=== PATIENT | female | born 1950 | race Caucasian/White ===

== ENCOUNTER 2017-07-27 23:56 | Emergency (ER) | payer MEDICARE ==
[~2017-07-27] VITALS: Ht 157.5 cm; Wt 80.0 kg
[~2017-07-27 23:56] MED LIST: ALBU18HF INH; ALPR0.254 PO; BENZ100C PO; DIGO250T PO; GUAI200T3 PO; IPRA3AMP NPPB; LEVO750T26 PO; LEVO750T6 PO; LOVA40TA2 PO; METH8TAB5 PO; METO-93 PO; MOME13HF INH; PRED10TA PO; TIOT18CA INH
[2017-07-28 00:27] LABS: BASOPHILS % (AUTO) 0 % (0-1); EOSINOPHILS % (AUTO) 0 % (1-7); LYMPHOCYTES # (AUTO) 0.81 x10^3/uL (1-3.4); LYMPHOCYTES % (AUTO) 7 % (22-44); MD NO; MEAN CORPUSCULAR HEMOGLOBIN 29.5 pg (27.0-34.8); MEAN CORPUSCULAR VOLUME 89.6 fL (80-100); MONOCYTES # (AUTO) 0.39 x10^3/uL (0.2-0.8); MONOCYTES % (AUTO) 4 % (2-9); NEUTROPHILS # (AUTO) 9.71 x10^3/uL (1.8-6.8); NEUTROPHILS % (AUTO) 89 % (42-75); PLATELET COUNT 233 x10^3/uL (130-400); RED BLOOD COUNT 4.99 x10^6/uL (3.82-5.3); RED CELL DISTRIBUTION WIDTH 13.4 % (9.6-15.2)
[2017-07-28] MEDS ORDERED: SODIUM CHLORIDE FLUSH 10ML SYR IVF ONE (00:30)
[2017-07-28] MEDS ORDERED: ONDANSETRON 2MG/ML, 2ML IVPush ONE (00:30)
[2017-07-28] MEDS ORDERED: HYDROmorphone 1 MG/ML, 1ML IV ONE (00:30)
[2017-07-28] MEDS ORDERED: HYDROmorphone 2 MG/ML, 1ML ONE (00:31)
[2017-07-28] MEDS ORDERED: ONDANSETRON 2MG/ML, 2ML ONE (00:31)
[2017-07-28 00:37] LABS: INTERNATIONAL NORMALIZED RATIO 1.06 (0.93-1.1); PROTHROMBIN TIME 10.9 Seconds (9.6-11.5)
[2017-07-28 00:38] LABS: CHLORIDE 100 mmol/L (98-107)
[2017-07-28 00:39] LABS: ALBUMIN 3.5 g/dL (3.4-5.0); ANION GAP 8 mmol/L (5-15); CALCIUM 9.1 mg/dL (8.5-10.1); CREATININE 0.74 mg/dL (0.55-1.02)
[2017-07-28 03:29] VITALS: BP 160/63
== END 2017-07-28 03:31 | disposition home or self-care (01) ==
LOC: ED 07-28 00:16
DX: G44.83 Primary cough headache (principal); J44.9 Chronic obstructive pulmonary disease, unspecified; Z87.01 Personal history of pneumonia (recurrent)
CPT/HCPCS: 36415; 70450; 80048; 82040; 85025; 85610; 85730; 96374; 96375; 99285; J1170; J2405

== ENCOUNTER 2017-07-29 02:02 | Emergency (ER) | payer MEDICARE ==
[~2017-07-29] VITALS: Ht 157.5 cm; Wt 74.1 kg
[2017-07-29] MEDS ORDERED: LIDOCAINE 1%, 20ML ONE (03:19)
[2017-07-29 03:44] LABS: MICROSCOPIC NOT IND
[2017-07-29 03:47] LABS: CULTURE INDICATED? NO
[2017-07-29 05:54] LABS: GLUCOSE, CSF 55 mg/dL (40-80); TOTAL PROTEIN,CSF 68 mg/dL (15-45)
[2017-07-29 07:19] VITALS: BP 129/72
== END 2017-07-29 07:54 | disposition home or self-care (01) ==
LOC: ED 03:05
DX: G44.019 Episodic cluster headache, not intractable (principal)
CPT/HCPCS: 62270; 81003; 82945; 84157; 87070; 87205; 89051; 99284; 99285

== ENCOUNTER 2017-08-02 12:42 | Inpatient (IN) | payer MEDICARE ==
[~2017-08-02] VITALS: Ht 157.5 cm; Wt 76.4 kg
[2017-08-02] MEDS ORDERED: ALBUTEROL/IPRATROPIUM 2.5MG/0.5MG, 3 ML ONE (13:54)
[2017-08-02] MEDS ORDERED: ALBUTEROL/IPRATROPIUM 2.5MG/0.5MG, 3 ML NPPB ONE (14:00)
[2017-08-02] MEDS ORDERED: SODIUM CHLORIDE FLUSH 10ML SYR IVF ONE (14:00)
[2017-08-02] MEDS ORDERED: SODIUM CHLORIDE 0.9% 1,000ML IVBOLUS ONE (14:00)
[2017-08-02 14:11] LABS: MEAN CORPUSCULAR HEMOGLOBIN 29.9 pg (27.0-34.8); MEAN CORPUSCULAR HGB CONC 33.5 g/dL (32.4-35.8); MEAN CORPUSCULAR VOLUME 89.2 fL (80-100); MEAN PLATELET VOLUME 8.2 fL (7.4-10.4); PLATELET COUNT 261 x10^3/uL (130-400); RED CELL DISTRIBUTION WIDTH 14.1 % (9.6-15.2)
[2017-08-02 14:16] LABS: ALBUMIN 3.8 g/dL (3.4-5.0); ANION GAP 9 mmol/L (5-15); CALCIUM 8.5 mg/dL (8.5-10.1); CHLORIDE 105 mmol/L (98-107); CREATININE 0.72 mg/dL (0.55-1.02)
[2017-08-02 14:36] LABS: BASOPHILS # (AUTO) 0.06 x10^3/uL (0-0.1); BASOPHILS % (AUTO) 0 % (0-1); EOSINOPHILS # (AUTO) 0.17 x10^3/uL (0-0.4); EOSINOPHILS % (AUTO) 1 % (1-7); LYMPHOCYTES # (AUTO) 1.09 x10^3/uL (1-3.4); LYMPHOCYTES % (AUTO) 6 % (22-44); MD SCAN; MONOCYTES # (AUTO) 1.21 x10^3/uL (0.2-0.8); MONOCYTES % (AUTO) 6 % (2-9); NEUTROPHILS # (AUTO) 16.87 x10^3/uL (1.8-6.8); NEUTROPHILS % (AUTO) 87 % (42-75)
[2017-08-02] MEDS ORDERED: PIPERACILLIN/TAZO/PMX 3.375GM 50 ML IV ONE (15:00)
[2017-08-02] MEDS ORDERED: SODIUM CHLORIDE FLUSH 10ML SYR IVF PRN (15:30)
[2017-08-02] MEDS ORDERED: PIPERACILLIN/TAZO/PMX 3.375GM 50 ML ONE (15:58)
[2017-08-02 17:17] VITALS: BP 121/55
[2017-08-02 17:26] VITALS: BP 121/55
[2017-08-02] MEDS ORDERED: hydrALAzine 20 MG/ML, 1ML IVPush PRN (17:30)
[2017-08-02] MEDS ORDERED: morphine SULFATE 10 MG/ML, 1ML IVPush PRN (17:30)
[2017-08-02] MEDS ORDERED: ONDANSETRON 2MG/ML, 2ML IVPush PRN (17:30)
[2017-08-02] MEDS ORDERED: VANCOMYCIN PER PHARMACY MC PRN (17:30)
[2017-08-02] MEDS ORDERED: ACETAMINOPHEN 325 MG TABLET PO PRN (17:30)
[2017-08-02] MEDS ORDERED: TEMAZEPAM 15 MG CAPSULE PO PRN (17:30)
[2017-08-02] MEDS ORDERED: VANCOMYCIN PMX 1GM/200ML 200 ML IV ONE (17:30)
[2017-08-02] MEDS ORDERED: PHARMACOKINETIC MONITORING MC PRN (18:00)
[2017-08-02] MEDS ORDERED: METOPROLOL TARTRATE 50 MG TABLET PO ONE (18:30)
[2017-08-02] MEDS ORDERED: DIGOXIN 0.25 MG TABLET PO ONE (18:30)
[2017-08-02] MEDS: ENOXAPARIN 40 MG/0.4 ML SQ SCH (18:38)
[2017-08-02] MEDS ORDERED: METOPROLOL SUCCINATE 50 MG TAB.ER.24H PO ONE (19:00)
[2017-08-02] MEDS ORDERED: ALBUTEROL/IPRATROPIUM 2.5MG/0.5MG, 3 ML NPPB SCH (20:00)
[2017-08-02] MEDS: LOVASTATIN 40 MG TABLET PO SCH (21:00)
[2017-08-02] MEDS: VALPROATE SODIUM 250 MG in DEXTROSE 5% 100 ML IV SCH (21:01)
[2017-08-02] MEDS: VANCOMYCIN 1,400 MG in SODIUM CHLORIDE 0.9% 250 ML IV SCH (21:45)
[2017-08-02] MEDS: PIPERACILLIN/TAZO/PMX 3.375GM 50 ML IV SCH (23:30)
[2017-08-03] MEDS: VALPROATE SODIUM 250 MG in DEXTROSE 5% 100 ML IV SCH ×4 (00:14→20:32)
[2017-08-03 00:56] VITALS: BP 134/62
[2017-08-03] MEDS ORDERED: ALBUTEROL/IPRATROPIUM 2.5MG/0.5MG, 3 ML ONE (01:01)
[2017-08-03] MEDS ORDERED: ALBUTEROL/IPRATROPIUM 2.5MG/0.5MG, 3 ML NPPB PRN (01:30)
[2017-08-03] MEDS: HYDROcodone/APAP 5/325 TABLET PO PRN ×3 (04:21→20:31)
[2017-08-03 04:57] LABS: BASOPHILS # (AUTO) 0.04 x10^3/uL (0-0.1); BASOPHILS % (AUTO) 0 % (0-1); EOSINOPHILS % (AUTO) 0 % (1-7); LYMPHOCYTES # (AUTO) 0.68 x10^3/uL (1-3.4); LYMPHOCYTES % (AUTO) 4 % (22-44); MD NO; MEAN CORPUSCULAR HEMOGLOBIN 29.9 pg (27.0-34.8); MEAN CORPUSCULAR HGB CONC 33.1 g/dL (32.4-35.8); MEAN CORPUSCULAR VOLUME 90.3 fL (80-100); MEAN PLATELET VOLUME 8.3 fL (7.4-10.4); MONOCYTES # (AUTO) 0.52 x10^3/uL (0.2-0.8); MONOCYTES % (AUTO) 3 % (2-9); NEUTROPHILS # (AUTO) 14.26 x10^3/uL (1.8-6.8); NEUTROPHILS % (AUTO) 92 % (42-75); PLATELET COUNT 221 x10^3/uL (130-400); RED BLOOD COUNT 4.61 x10^6/uL (3.82-5.3); RED CELL DISTRIBUTION WIDTH 13.9 % (9.6-15.2)
[2017-08-03 05:09] LABS: ALBUMIN 3.2 g/dL (3.4-5.0); ANION GAP 7 mmol/L (5-15); CALCIUM 8.3 mg/dL (8.5-10.1); CHLORIDE 106 mmol/L (98-107)
[2017-08-03 05:13] LABS: ALANINE AMINOTRANSFERASE 25 U/L (12-78); ALKALINE PHOSPHATASE 47 U/L (45-117); BILIRUBIN,TOTAL 0.4 mg/dL (0.2-1.0); CREATININE 0.75 mg/dL (0.55-1.02); TOTAL PROTEIN 6.4 g/dL (6.4-8.2)
[2017-08-03] MEDS: PIPERACILLIN/TAZO/PMX 3.375GM 50 ML IV SCH ×3 (05:55→17:40)
[2017-08-03] MEDS: ALBUTEROL/IPRATROPIUM 2.5MG/0.5MG, 3 ML NPPB SCH ×4 (07:00→19:24)
[2017-08-03 07:07] VITALS: BP 118/55
[2017-08-03] MEDS: METOPROLOL SUCCINATE 50 MG TAB.ER.24H PO SCH (08:03)
[2017-08-03] MEDS: DIGOXIN 0.25 MG TABLET PO SCH (08:03)
[2017-08-03 14:12] VITALS: BP 110/61
[2017-08-03] MEDS ORDERED: POLYETHYLENE GLYCOL 17 GM PACKET PO PRN (16:30)
[2017-08-03] MEDS: ENOXAPARIN 40 MG/0.4 ML SQ SCH (17:39)
[2017-08-03 18:56] VITALS: BP 109/52
[2017-08-03] MEDS ORDERED: DIPHENHYDRAMINE 50 MG/ML, 1ML IVPush ONE (22:00)
[2017-08-03] MEDS ORDERED: METOCLOPRAMIDE 5 MG/ML, 2ML IVPush ONE (22:00)
[2017-08-03] MEDS: LOVASTATIN 40 MG TABLET PO SCH (22:02)
[2017-08-03] MEDS: VANCOMYCIN 1,400 MG in SODIUM CHLORIDE 0.9% 250 ML IV SCH (22:03)
[2017-08-04] MEDS: PIPERACILLIN/TAZO/PMX 3.375GM 50 ML IV SCH ×5 (00:01→23:30)
[2017-08-04 00:48] VITALS: BP 146/65
[2017-08-04] MEDS: VALPROATE SODIUM 250 MG in DEXTROSE 5% 100 ML IV SCH ×3 (02:33→14:19)
[2017-08-04 05:03] VITALS: BP 129/59
[2017-08-04 05:09] LABS: BASOPHILS # (AUTO) 0.04 x10^3/uL (0-0.1); BASOPHILS % (AUTO) 0 % (0-1); EOSINOPHILS # (AUTO) 0.02 x10^3/uL (0-0.4); EOSINOPHILS % (AUTO) 0 % (1-7); LYMPHOCYTES # (AUTO) 2.65 x10^3/uL (1-3.4); LYMPHOCYTES % (AUTO) 19 % (22-44); MD NO; MEAN CORPUSCULAR HEMOGLOBIN 29.9 pg (27.0-34.8); MEAN CORPUSCULAR HGB CONC 32.7 g/dL (32.4-35.8); MEAN CORPUSCULAR VOLUME 91.2 fL (80-100); MONOCYTES # (AUTO) 0.86 x10^3/uL (0.2-0.8); MONOCYTES % (AUTO) 6 % (2-9); NEUTROPHILS # (AUTO) 10.15 x10^3/uL (1.8-6.8); NEUTROPHILS % (AUTO) 74 % (42-75); PLATELET COUNT 222 x10^3/uL (130-400); RED BLOOD COUNT 4.34 x10^6/uL (3.82-5.3); RED CELL DISTRIBUTION WIDTH 13.4 % (9.6-15.2)
[2017-08-04 05:19] LABS: ALBUMIN 2.9 g/dL (3.4-5.0); ANION GAP 7 mmol/L (5-15); CHLORIDE 103 mmol/L (98-107)
[2017-08-04 05:24] LABS: ALANINE AMINOTRANSFERASE 19 U/L (12-78); ALKALINE PHOSPHATASE 48 U/L (45-117); BILIRUBIN,TOTAL 0.3 mg/dL (0.2-1.0); CREATININE 0.75 mg/dL (0.55-1.02); TOTAL PROTEIN 5.9 g/dL (6.4-8.2)
[2017-08-04] MEDS: HYDROcodone/APAP 5/325 TABLET PO PRN ×3 (05:59→19:48)
[2017-08-04 06:45] VITALS: BP 114/53
[2017-08-04] MEDS: ALBUTEROL/IPRATROPIUM 2.5MG/0.5MG, 3 ML NPPB SCH ×4 (07:15→19:25)
[2017-08-04] MEDS: METOPROLOL SUCCINATE 50 MG TAB.ER.24H PO SCH (08:14)
[2017-08-04] MEDS: SENNA/DOCUSATE TABLET PO SCH (08:15)
[2017-08-04] MEDS: DIGOXIN 0.25 MG TABLET PO SCH (08:15)
[2017-08-04] MEDS ORDERED: GUAIFENESIN ER 600 MG TABLET ONE (10:21)
[2017-08-04] MEDS: GUAIFENESIN 200 MG TABLET PO SCH ×3 (10:24→19:48)
[2017-08-04 12:45] VITALS: BP 117/63
[2017-08-04] MEDS: ENOXAPARIN 40 MG/0.4 ML SQ SCH (17:05)
[2017-08-04] MEDS ORDERED: PROCHLORPERAZINE 5 MG/ML, 2ML IVPush ONE (19:00)
[2017-08-04] MEDS ORDERED: DIPHENHYDRAMINE 50 MG/ML, 1ML IVPush PRN (19:00)
[2017-08-04] MEDS ORDERED: KETOROLAC 30 MG/1 ML IVPush PRN (19:00)
[2017-08-04 19:10] VITALS: BP 117/55
[2017-08-04] MEDS: LOVASTATIN 40 MG TABLET PO SCH (19:48)
[2017-08-04] MEDS: VANCOMYCIN 1,400 MG in SODIUM CHLORIDE 0.9% 250 ML IV SCH (21:49)
[2017-08-05 01:35] VITALS: BP 120/61
[2017-08-05 04:59] LABS: ALBUMIN 2.8 g/dL (3.4-5.0); ANION GAP 5 mmol/L (5-15); CALCIUM 7.9 mg/dL (8.5-10.1); CHLORIDE 104 mmol/L (98-107)
[2017-08-05 05:00] LABS: CREATININE 0.69 mg/dL (0.55-1.02)
[2017-08-05] MEDS: PIPERACILLIN/TAZO/PMX 3.375GM 50 ML IV SCH ×4 (05:49→23:33)
[2017-08-05] MEDS: ALBUTEROL/IPRATROPIUM 2.5MG/0.5MG, 3 ML NPPB SCH ×4 (06:58→18:26)
[2017-08-05 08:24] VITALS: BP 137/54
[2017-08-05] MEDS: METOPROLOL SUCCINATE 50 MG TAB.ER.24H PO SCH (09:23)
[2017-08-05] MEDS: VANCOMYCIN 1,400 MG in SODIUM CHLORIDE 0.9% 250 ML IV SCH (09:23)
[2017-08-05] MEDS: DIGOXIN 0.25 MG TABLET PO SCH (09:24)
[2017-08-05] MEDS: SENNA/DOCUSATE TABLET PO SCH (09:24)
[2017-08-05] MEDS: GUAIFENESIN 200 MG TABLET PO SCH ×3 (09:24→21:57)
[2017-08-05] MEDS: HYDROcodone/APAP 5/325 TABLET PO PRN ×4 (09:53→22:05)
[2017-08-05 14:14] VITALS: BP 120/51
[2017-08-05] MEDS: ENOXAPARIN 40 MG/0.4 ML SQ SCH (18:04)
[2017-08-05] MEDS ORDERED: PROCHLORPERAZINE 5 MG/ML, 2ML IVPush PRN (18:30)
[2017-08-05 18:47] VITALS: BP 119/47
[2017-08-05] MEDS: LOVASTATIN 40 MG TABLET PO SCH (21:57)
[2017-08-06] MEDS ORDERED: OMNIPAQUE 350 MG/ML, 75ML BOTTLE ONE
[2017-08-06 00:59] VITALS: BP 124/63
[2017-08-06] MEDS: VANCOMYCIN 1,400 MG in SODIUM CHLORIDE 0.9% 250 ML IV SCH ×2 (03:16→20:34)
[2017-08-06] MEDS: HYDROcodone/APAP 5/325 TABLET PO PRN (04:28)
[2017-08-06] MEDS: PIPERACILLIN/TAZO/PMX 3.375GM 50 ML IV SCH ×3 (06:09→17:31)
[2017-08-06] MEDS: ALBUTEROL/IPRATROPIUM 2.5MG/0.5MG, 3 ML NPPB SCH ×4 (06:25→19:43)
[2017-08-06 06:40] VITALS: BP 101/66
[2017-08-06] MEDS: GUAIFENESIN 200 MG TABLET PO SCH ×3 (08:37→20:34)
[2017-08-06] MEDS: SENNA/DOCUSATE TABLET PO SCH (08:38)
[2017-08-06] MEDS: DIGOXIN 0.25 MG TABLET PO SCH (08:38)
[2017-08-06] MEDS: METOPROLOL SUCCINATE 50 MG TAB.ER.24H PO SCH (08:38)
[2017-08-06] MEDS: PANTOPROZOLE 40MG TABLET PO SCH ×2 (09:55→20:34)
[2017-08-06 10:55] LABS: RAPID INFLUENZA A Negative (Negative); RAPID INFLUENZA B Negative (Negative)
[2017-08-06] MEDS: SUCRALFATE 1 GM TABLET PO SCH ×3 (11:05→20:34)
[2017-08-06 12:58] VITALS: BP 121/64
[2017-08-06] MEDS: ENOXAPARIN 40 MG/0.4 ML SQ SCH (18:07)
[2017-08-06 19:31] VITALS: BP 114/68
[2017-08-06] MEDS: LOVASTATIN 40 MG TABLET PO SCH (20:34)
[2017-08-07] MEDS: PIPERACILLIN/TAZO/PMX 3.375GM 50 ML IV SCH ×2 (00:19→05:17)
[2017-08-07 01:13] VITALS: BP 144/74
[2017-08-07] MEDS: ALBUTEROL/IPRATROPIUM 2.5MG/0.5MG, 3 ML NPPB SCH ×4 (07:25→20:48)
[2017-08-07 07:53] VITALS: BP 133/78
[2017-08-07] MEDS: PANTOPROZOLE 40MG TABLET PO SCH ×2 (08:55→20:25)
[2017-08-07] MEDS: SUCRALFATE 1 GM TABLET PO SCH ×4 (08:56→20:26)
[2017-08-07] MEDS: DIGOXIN 0.25 MG TABLET PO SCH (08:56)
[2017-08-07] MEDS: METOPROLOL SUCCINATE 50 MG TAB.ER.24H PO SCH (08:56)
[2017-08-07] MEDS: GUAIFENESIN 200 MG TABLET PO SCH ×3 (08:56→20:26)
[2017-08-07] MEDS: SENNA/DOCUSATE TABLET PO SCH (08:57)
[2017-08-07 12:04] VITALS: BP 128/78
[2017-08-07] MEDS: HYDROcodone/APAP 5/325 TABLET PO PRN ×2 (16:37→20:26)
[2017-08-07] MEDS: ENOXAPARIN 40 MG/0.4 ML SQ SCH (18:11)
[2017-08-07 18:47] VITALS: BP 116/70
[2017-08-07] MEDS: LOVASTATIN 40 MG TABLET PO SCH (20:26)
[2017-08-07] MEDS: AMOXICILLIN/CLAV 875-125MG TABLET PO SCH (20:27)
[2017-08-08 01:26] VITALS: BP 137/79
[2017-08-08 06:37] VITALS: BP 148/75
[2017-08-08] MEDS: ALBUTEROL/IPRATROPIUM 2.5MG/0.5MG, 3 ML NPPB SCH ×2 (07:39→11:37)
[2017-08-08] MEDS: GUAIFENESIN 200 MG TABLET PO SCH (08:21)
[2017-08-08] MEDS: PANTOPROZOLE 40MG TABLET PO SCH (08:21)
[2017-08-08] MEDS: METOPROLOL SUCCINATE 50 MG TAB.ER.24H PO SCH (08:22)
[2017-08-08] MEDS: DIGOXIN 0.25 MG TABLET PO SCH (08:22)
[2017-08-08] MEDS: AMOXICILLIN/CLAV 875-125MG TABLET PO SCH (08:22)
[2017-08-08] MEDS: SUCRALFATE 1 GM TABLET PO SCH ×2 (08:22→11:09)
[2017-08-08] MEDS: SENNA/DOCUSATE TABLET PO SCH (08:23)
[2017-08-08] MEDS ORDERED: SUCR1TAB33 PO (11:20)
[2017-08-08] MEDS ORDERED: PROC10TA78 PO (11:20)
[2017-08-08] MEDS ORDERED: KETO10TA PO (11:20)
[2017-08-08] MEDS ORDERED: GUAI200T3 PO (11:20)
[2017-08-08] MEDS ORDERED: DIPH25CA61 PO (11:20)
[2017-08-08] MEDS ORDERED: PANT40TA5 PO (11:20)
[2017-08-08] MEDS ORDERED: PRED10TA14 PO (11:20)
[2017-08-08] MEDS ORDERED: AMOX1TAB12 PO (11:20)
== END 2017-08-08 12:35 | disposition home or self-care (01) | DRG 177 ==
LOC: ED 13:35 → EDIP 15:03 → 4WST 16:35
PROVIDERS: ADMIT Internal Medicine; ATTEND Internal Medicine
DX: J69.0 Pneumonitis due to inhalation of food and vomit (principal); E43 Unspecified severe protein-calorie malnutrition; J96.21 Acute and chronic respiratory failure with hypoxia; E66.9 Obesity, unspecified; E78.5 Hyperlipidemia, unspecified; F41.9 Anxiety disorder, unspecified; G47.33 Obstructive sleep apnea (adult) (pediatric); K21.9 Gastro-esophageal reflux disease without esophagitis; G44.009 Cluster headache syndrome, unspecified, not intractable; Z98.82 Breast implant status; Z68.30 Body mass index [BMI] 30.0-30.9, adult
CPT/HCPCS: 36415; 71045; 71260; 80048; 80053; 80202; 82040; 83735; 84100; 85025; 87040; 87205; 87400; 93005; 94640; 96360; J1650; J1885; J2405; J2543; J3370; J7620; Q9967; J0780; J1200; J2765; J7030; J7050; J7512

== ENCOUNTER 2017-09-16 15:53 | Inpatient (IN) | payer MEDICARE ==
[~2017-09-16] VITALS: Ht 157.5 cm; Wt 71.0 kg
[~2017-09-16 15:53] MED LIST changes: +AMOX1TAB12 PO; +DIPH25CA61 PO; +KETO10TA PO; +PANT40TA5 PO; +PRED10TA14 PO; +PROC10TA78 PO; +SUCR1TAB33 PO
[2017-09-16] MEDS ORDERED: ALBUTEROL/IPRATROPIUM 2.5MG/0.5MG, 3 ML ONE (16:17)
[2017-09-16 16:30] LABS: BASOPHILS # (AUTO) 0.03 x10^3/uL (0-0.1); BASOPHILS % (AUTO) 0 % (0-1); EOSINOPHILS # (AUTO) 0.07 x10^3/uL (0-0.4); EOSINOPHILS % (AUTO) 1 % (1-7); LYMPHOCYTES # (AUTO) 1.76 x10^3/uL (1-3.4); LYMPHOCYTES % (AUTO) 16 % (22-44); MD NO; MEAN CORPUSCULAR HEMOGLOBIN 29.6 pg (27.0-34.8); MEAN CORPUSCULAR HGB CONC 33.7 g/dL (32.4-35.8); MEAN CORPUSCULAR VOLUME 87.7 fL (80-100); MEAN PLATELET VOLUME 8.3 fL (7.4-10.4); MONOCYTES % (AUTO) 7 % (2-9); NEUTROPHILS # (AUTO) 8.31 x10^3/uL (1.8-6.8); NEUTROPHILS % (AUTO) 76 % (42-75); PLATELET COUNT 242 x10^3/uL (130-400); RED CELL DISTRIBUTION WIDTH 13.8 % (9.6-15.2)
[2017-09-16] MEDS ORDERED: methylPREDNISolone SOD SUCC 125 MG/2 ML IVP ONE (16:30)
[2017-09-16] MEDS ORDERED: SODIUM CHLORIDE FLUSH 10ML SYR IVF ONE ×2 (16:30→17:30)
[2017-09-16] MEDS ORDERED: ALBUTEROL/IPRATROPIUM 2.5MG/0.5MG, 3 ML NPPB ONE (16:30)
[2017-09-16 16:34] LABS: ALANINE AMINOTRANSFERASE 35 U/L (12-78); ALBUMIN 3.7 g/dL (3.4-5.0); ANION GAP 9 mmol/L (5-15); CALCIUM 8.7 mg/dL (8.5-10.1); CHLORIDE 105 mmol/L (98-107); CREATININE 0.72 mg/dL (0.55-1.02)
[2017-09-16 16:38] LABS: ALKALINE PHOSPHATASE 72 U/L (45-117); BILIRUBIN,TOTAL 0.3 mg/dL (0.2-1.0); TOTAL PROTEIN 7.3 g/dL (6.4-8.2); TROPONIN I < 0.015 ng/mL (0.000-0.045)
[2017-09-16] MEDS ORDERED: methylPREDNISolone SOD SUCC 125 MG/2 ML ONE (17:08)
[2017-09-16] MEDS ORDERED: ALBU90AE INH (17:23)
[2017-09-16] MEDS ORDERED: MOME13HF INH (17:24)
[2017-09-16] MEDS ORDERED: IBUPROFEN 800 MG TABLET ONE (17:34)
[2017-09-16] MEDS ORDERED: OXYGEN NAS (17:39)
[2017-09-16] MEDS ORDERED: ACETAMINOPHEN 325 MG TABLET PO PRN (18:00)
[2017-09-16] MEDS ORDERED: ONDANSETRON 2MG/ML, 2ML IVPush PRN (18:00)
[2017-09-16] MEDS ORDERED: POLYETHYLENE GLYCOL 17 GM PACKET PO PRN (18:00)
[2017-09-16] MEDS ORDERED: BISACODYL 10 MG SUPP PR PRN (18:00)
[2017-09-16] MEDS ORDERED: IBUPROFEN 200 MG TABLET PO ONE (18:00)
[2017-09-16] MEDS ORDERED: IPRATROPIUM 0.5 MG/2.5 ML INHA NPPB SCH (19:00)
[2017-09-16] MEDS ORDERED: ALBUTEROL SULFATE 2.5 MG/3 ML NPPB PRN (19:00)
[2017-09-16 19:59] VITALS: BP 102/62
[2017-09-16] MEDS: methylPREDNISolone SOD SUCC 125 MG/2 ML IVPush SCH (20:23)
[2017-09-16] MEDS: HEPARIN 5,000 UNITS/ML, 1ML SQ SCH (20:24)
[2017-09-16] MEDS: SODIUM CHLORIDE FLUSH 10ML SYR IVF SCH (20:24)
[2017-09-16] MEDS: LOVASTATIN 40 MG TABLET PO SCH (20:24)
[2017-09-16] MEDS ORDERED: TEMPLATE NON-FORMULARY MED. ([Oxygen] 2 L) NAS SCH (21:00)
[2017-09-16] MEDS: IBUPROFEN 200 MG TABLET PO PRN (22:31)
[2017-09-17 01:39] VITALS: BP 99/66
[2017-09-17 06:03] LABS: BASOPHILS % (AUTO) 0 % (0-1); EOSINOPHILS % (AUTO) 0 % (1-7); LYMPHOCYTES # (AUTO) 0.52 x10^3/uL (1-3.4); LYMPHOCYTES % (AUTO) 6 % (22-44); MD NO; MEAN CORPUSCULAR HGB CONC 33.9 g/dL (32.4-35.8); MEAN CORPUSCULAR VOLUME 88.5 fL (80-100); MEAN PLATELET VOLUME 8.4 fL (7.4-10.4); MONOCYTES % (AUTO) 1 % (2-9); NEUTROPHILS # (AUTO) 8.64 x10^3/uL (1.8-6.8); NEUTROPHILS % (AUTO) 93 % (42-75); PLATELET COUNT 234 x10^3/uL (130-400); RED BLOOD COUNT 4.38 x10^6/uL (3.82-5.3); RED CELL DISTRIBUTION WIDTH 13.4 % (9.6-15.2)
[2017-09-17] MEDS: HEPARIN 5,000 UNITS/ML, 1ML SQ SCH ×3 (06:09→20:20)
[2017-09-17] MEDS: methylPREDNISolone SOD SUCC 125 MG/2 ML IVPush SCH ×3 (06:09→20:20)
[2017-09-17 06:13] LABS: ALANINE AMINOTRANSFERASE 31 U/L (12-78); ALBUMIN 3.5 g/dL (3.4-5.0); ANION GAP 8 mmol/L (5-15); CALCIUM 8.5 mg/dL (8.5-10.1); CHLORIDE 104 mmol/L (98-107); CREATININE 0.77 mg/dL (0.55-1.02)
[2017-09-17 06:15] LABS: ALKALINE PHOSPHATASE 62 U/L (45-117); BILIRUBIN,TOTAL 0.2 mg/dL (0.2-1.0); TOTAL PROTEIN 6.9 g/dL (6.4-8.2)
[2017-09-17] MEDS: GUAIFENESIN/DM 200-20MG, 10ML UDC PO PRN ×3 (06:25→20:20)
[2017-09-17] MEDS: IBUPROFEN 200 MG TABLET PO PRN ×3 (06:25→23:25)
[2017-09-17 06:47] VITALS: BP 129/64
[2017-09-17] MEDS: ALBUTEROL/IPRATROPIUM 2.5MG/0.5MG, 3 ML NPPB SCH ×4 (07:25→22:00)
[2017-09-17] MEDS ORDERED: SENNA/DOCUSATE TABLET PO SCH ×2 (09:00→21:00)
[2017-09-17] MEDS: SODIUM CHLORIDE FLUSH 10ML SYR IVF SCH ×2 (09:07→20:21)
[2017-09-17] MEDS: AZITHROMYCIN 500 MG TABLET PO SCH (09:07)
[2017-09-17] MEDS: METOPROLOL SUCCINATE 50 MG TAB.ER.24H PO SCH (09:07)
[2017-09-17] MEDS: FLUTICASONE/VILANTEROL 200-25MCG/INH INH SCH (09:07)
[2017-09-17] MEDS: DIGOXIN 0.25 MG TABLET PO SCH (09:07)
[2017-09-17 13:13] VITALS: BP 150/67
[2017-09-17] MEDS ORDERED: KETOROLAC 30 MG/1 ML IVPush ONE (16:00)
[2017-09-17] MEDS ORDERED: PROCHLORPERAZINE 10MG TABLET PO ONE (16:00)
[2017-09-17] MEDS ORDERED: DIPHENHYDRAMINE 25 MG CAPSULE PO ONE (16:00)
[2017-09-17] MEDS: LOVASTATIN 40 MG TABLET PO SCH (20:19)
[2017-09-17 20:45] VITALS: BP 116/68
[2017-09-18 02:40] VITALS: BP 143/67
[2017-09-18] MEDS: methylPREDNISolone SOD SUCC 125 MG/2 ML IVPush SCH ×2 (05:07→13:08)
[2017-09-18] MEDS: IBUPROFEN 200 MG TABLET PO PRN (05:07)
[2017-09-18] MEDS: HEPARIN 5,000 UNITS/ML, 1ML SQ SCH ×2 (05:08→13:08)
[2017-09-18] MEDS: GUAIFENESIN/DM 200-20MG, 10ML UDC PO PRN (05:13)
[2017-09-18] MEDS: ALBUTEROL/IPRATROPIUM 2.5MG/0.5MG, 3 ML NPPB SCH ×2 (06:57→10:18)
[2017-09-18 07:10] VITALS: BP 165/65
[2017-09-18] MEDS: METOPROLOL SUCCINATE 50 MG TAB.ER.24H PO SCH (08:14)
[2017-09-18] MEDS: FLUTICASONE/VILANTEROL 200-25MCG/INH INH SCH (08:14)
[2017-09-18] MEDS: DIGOXIN 0.25 MG TABLET PO SCH (08:14)
[2017-09-18] MEDS: SODIUM CHLORIDE FLUSH 10ML SYR IVF SCH (08:15)
[2017-09-18] MEDS: AZITHROMYCIN 500 MG TABLET PO SCH (08:15)
[2017-09-18] MEDS ORDERED: MONTELUKAST 10 MG TABLET PO STA (13:08)
== END 2017-09-18 15:15 | disposition home or self-care (01) | DRG 189 ==
LOC: ED 16:59 → EDIP 17:28 → 3NE 18:07
PROVIDERS: ADMIT Family Medicine; ATTEND Hospitalist
DX: J96.21 Acute and chronic respiratory failure with hypoxia (principal); Z99.81 Dependence on supplemental oxygen; J90 Pleural effusion, not elsewhere classified; J44.1 Chronic obstructive pulmonary disease with (acute) exacerbation; J98.11 Atelectasis; I47.1 Supraventricular tachycardia; E78.5 Hyperlipidemia, unspecified; E66.9 Obesity, unspecified; G47.33 Obstructive sleep apnea (adult) (pediatric); Z81.8 Family history of other mental and behavioral disorders; Z82.5 Family history of asthma and other chronic lower respiratory diseases; Z87.891 Personal history of nicotine dependence; Z90.710 Acquired absence of both cervix and uterus; Z68.28 Body mass index [BMI] 28.0-28.9, adult
CPT/HCPCS: 36415; 71045; 80053; 80162; 83880; 84484; 85025; 93005; 94640; 96374; J1644; J7620; J2930

== ENCOUNTER 2017-09-22 11:33 | Inpatient (IN) | payer MEDICARE ==
[~2017-09-22] VITALS: Ht 157.5 cm; Wt 75.8 kg
[~2017-09-22 11:33] MED LIST changes: +ALBU90AE INH; +OXYGEN NAS
[2017-09-22] MEDS ORDERED: methylPREDNISolone SOD SUCC 125 MG/2 ML ONE (12:40)
[2017-09-22] MEDS ORDERED: ALBUTEROL/IPRATROPIUM 2.5MG/0.5MG, 3 ML ONE ×2 (12:42→17:58)
[2017-09-22 12:52] LABS: ALBUMIN 3.7 g/dL (3.4-5.0); ANION GAP 9 mmol/L (5-15); CALCIUM 9.1 mg/dL (8.5-10.1); CHLORIDE 103 mmol/L (98-107); CREATININE 0.77 mg/dL (0.55-1.02)
[2017-09-22] MEDS ORDERED: methylPREDNISolone SOD SUCC 125 MG/2 ML IVP ONE (13:00)
[2017-09-22] MEDS ORDERED: ALBUTEROL/IPRATROPIUM 2.5MG/0.5MG, 3 ML NPPB ONE (13:00)
[2017-09-22] MEDS ORDERED: METO-93 PO (13:19)
[2017-09-22] MEDS ORDERED: DIGO250T PO (13:19)
[2017-09-22] MEDS ORDERED: MONT10TA6 PO (13:20)
[2017-09-22 13:37] LABS: MEAN CORPUSCULAR HEMOGLOBIN 30.1 pg (27.0-34.8); MEAN CORPUSCULAR HGB CONC 33.9 g/dL (32.4-35.8); MEAN CORPUSCULAR VOLUME 88.7 fL (80-100); MEAN PLATELET VOLUME 8.1 fL (7.4-10.4); PLATELET COUNT 301 x10^3/uL (130-400); RED BLOOD COUNT 4.72 x10^6/uL (3.82-5.3); RED CELL DISTRIBUTION WIDTH 13.8 % (9.6-15.2)
[2017-09-22 13:51] LABS: MD YES
[2017-09-22 13:52] LABS: BAND#(MANUAL) 0.14 x10^3/uL; BANDS%(MANUAL) 1 % (0-7); LYMPH#(MANUAL) 1.54 x10^3/uL (1-3.4); LYMPHS% (MANUAL) 11 % (22-44); MONOS#(MANUAL) 0.84 x10^3/uL (0.3-2.7); MONOS% (MANUAL) 6 % (2-9); SEG#(MANUAL) 11.48 x10^3/uL (1.8-6.8); SEGS% (MANUAL) 82 % (42-75)
[2017-09-22 13:53] LABS: <PLATELET ESTIMATE> ADEQUATE; <PLT MORPHOLOGY> NORMAL PLT MORPH; <RBC MORPHOLOGY> NORMAL
[2017-09-22] MEDS ORDERED: SODIUM CHLORIDE FLUSH 10ML SYR IVF PRN (14:00)
[2017-09-22] MEDS ORDERED: ACETAMINOPHEN 325 MG TABLET PO PRN (14:30)
[2017-09-22 16:37] VITALS: BP 104/69
[2017-09-22 16:43] VITALS: BP 104/69
[2017-09-22] MEDS: ALBUTEROL/IPRATROPIUM 2.5MG/0.5MG, 3 ML NPPB SCH (18:33)
[2017-09-22 19:34] VITALS: BP 110/68
[2017-09-22] MEDS ORDERED: OMNIPAQUE 350 MG/ML, 100ML BOTTLE ONE (20:26)
[2017-09-22] MEDS: methylPREDNISolone SOD SUCC 125 MG/2 ML IVPush SCH (20:37)
[2017-09-22] MEDS: LOVASTATIN 40 MG TABLET PO SCH (20:38)
[2017-09-22] MEDS: DIGOXIN 0.25 MG TABLET PO SCH (20:38)
[2017-09-22] MEDS: GUAIFENESIN ER 600 MG TABLET PO SCH (20:38)
[2017-09-22] MEDS: MONTELUKAST 10 MG TABLET PO SCH (20:38)
[2017-09-23 01:42] VITALS: BP 115/64
[2017-09-23] MEDS: methylPREDNISolone SOD SUCC 125 MG/2 ML IVPush SCH ×4 (03:25→20:46)
[2017-09-23] MEDS: ALBUTEROL/IPRATROPIUM 2.5MG/0.5MG, 3 ML NPPB SCH ×4 (07:00→19:14)
[2017-09-23 07:05] VITALS: BP 112/67
[2017-09-23] MEDS: GUAIFENESIN ER 600 MG TABLET PO SCH ×2 (08:19→20:46)
[2017-09-23] MEDS: METOPROLOL SUCCINATE 50 MG TAB.ER.24H PO SCH (08:19)
[2017-09-23 13:13] VITALS: BP 128/77
[2017-09-23] MEDS ORDERED: IPRATROPIUM 0.5 MG/2.5 ML INHA NPPB SCH (15:00)
[2017-09-23 20:09] VITALS: BP 115/57
[2017-09-23] MEDS: LOVASTATIN 40 MG TABLET PO SCH (20:46)
[2017-09-23] MEDS: DIGOXIN 0.25 MG TABLET PO SCH (20:46)
[2017-09-23] MEDS: MONTELUKAST 10 MG TABLET PO SCH (20:47)
[2017-09-24 00:58] VITALS: BP 160/77
[2017-09-24] MEDS: methylPREDNISolone SOD SUCC 125 MG/2 ML IVPush SCH ×2 (02:49→17:21)
[2017-09-24] MEDS: ALBUTEROL/IPRATROPIUM 2.5MG/0.5MG, 3 ML NPPB SCH (06:48)
[2017-09-24 07:00] VITALS: BP 131/76
[2017-09-24] MEDS ORDERED: LIDOCAINE 4% TOPICAL SOLUTION 50 ML ONE (08:00)
[2017-09-24] MEDS ORDERED: MIDAZOLAM 1 MG/ML, 5ML ONE (09:39)
[2017-09-24] MEDS ORDERED: FENTANYL PF 100 MCG/2ML ONE (09:39)
[2017-09-24 11:28] VITALS: BP 128/62
[2017-09-24] MEDS: GUAIFENESIN ER 600 MG TABLET PO SCH ×2 (11:29→20:12)
[2017-09-24] MEDS: METOPROLOL SUCCINATE 50 MG TAB.ER.24H PO SCH (11:29)
[2017-09-24 13:34] VITALS: BP 129/73
[2017-09-24 19:33] VITALS: BP 129/71
[2017-09-24] MEDS: LOVASTATIN 40 MG TABLET PO SCH (20:13)
[2017-09-24] MEDS: DIGOXIN 0.25 MG TABLET PO SCH (20:13)
[2017-09-24] MEDS: MONTELUKAST 10 MG TABLET PO SCH (20:13)
[2017-09-25 01:05] VITALS: BP 116/70
[2017-09-25] MEDS: methylPREDNISolone SOD SUCC 125 MG/2 ML IVPush SCH ×2 (01:33→09:26)
[2017-09-25 08:00] VITALS: BP 146/69
[2017-09-25] MEDS: METOPROLOL SUCCINATE 50 MG TAB.ER.24H PO SCH (09:25)
[2017-09-25] MEDS: GUAIFENESIN ER 600 MG TABLET PO SCH (09:25)
[2017-09-25] MEDS ORDERED: ALBUTEROL/IPRATROPIUM 2.5MG/0.5MG, 3 ML NPPB PRN (11:00)
[2017-09-25] MEDS ORDERED: PRED20TA PO (12:47)
== END 2017-09-25 14:20 | disposition home or self-care (01) | DRG 166 ==
LOC: ED 13:31 → EDIP 13:51 → 4EST 15:50
PROVIDERS: ADMIT Internal Medicine; ATTEND Internal Medicine
PROC: 0B9F8ZX Drainage of Right Lower Lung Lobe, Via Natural or Artificial Opening Endoscopic, Diagnostic (ICD-10-PCS; 2017-09-24)
PROC: 0B9J8ZX Drainage of Left Lower Lung Lobe, Via Natural or Artificial Opening Endoscopic, Diagnostic (ICD-10-PCS; principal; 2017-09-24 11:00)
DX: J98.19 Other pulmonary collapse (principal); J96.01 Acute respiratory failure with hypoxia; J44.1 Chronic obstructive pulmonary disease with (acute) exacerbation; I47.1 Supraventricular tachycardia; Z99.81 Dependence on supplemental oxygen; E66.9 Obesity, unspecified; E78.5 Hyperlipidemia, unspecified; D72.829 Elevated white blood cell count, unspecified; G43.909 Migraine, unspecified, not intractable, without status migrainosus; G47.33 Obstructive sleep apnea (adult) (pediatric); Z68.28 Body mass index [BMI] 28.0-28.9, adult; Z87.01 Personal history of pneumonia (recurrent); Z87.891 Personal history of nicotine dependence; Z90.710 Acquired absence of both cervix and uterus; Z88.8 Allergy status to other drugs, medicaments and biological substances
CPT/HCPCS: 31622; 36415; 71045; 71046; 71275; 80048; 82040; 85025; 93005; 94640; 96374; 99152; 99153; J2250; J3010; J7620; Q9967; J2930

== ENCOUNTER 2018-01-17 07:23 | Inpatient (IN) | payer MEDICARE ==
[~2018-01-17] VITALS: Ht 157.5 cm; Wt 76.6 kg
[~2018-01-17 07:23] MED LIST changes: +FLUT16SP NAS; -IPRA3AMP NPPB; +IPRA3AMP30 NPPB; +MONT10TA6 PO; +PRED20TA PO; +SODI44SP NAS
[2018-01-17] MEDS ORDERED: ALBUTEROL/IPRATROPIUM 2.5MG/0.5MG, 3 ML ONE (07:47)
[2018-01-17] MEDS ORDERED: methylPREDNISolone SOD SUCC 125 MG/2 ML IVP ONE (08:00)
[2018-01-17] MEDS ORDERED: SODIUM CHLORIDE FLUSH 10ML SYR IVF ONE (08:00)
[2018-01-17 08:20] LABS: BASOPHILS # (AUTO) 0.08 x10^3/uL (0-0.1); BASOPHILS % (AUTO) 1 % (0-1); EOSINOPHILS # (AUTO) 0.13 x10^3/uL (0-0.4); EOSINOPHILS % (AUTO) 1 % (1-7); LYMPHOCYTES # (AUTO) 3.25 x10^3/uL (1-3.4); LYMPHOCYTES % (AUTO) 31 % (22-44); MD NO; MEAN CORPUSCULAR HEMOGLOBIN 28.1 pg (27.0-34.8); MEAN CORPUSCULAR HGB CONC 32.3 g/dL (32.4-35.8); MEAN CORPUSCULAR VOLUME 86.9 fL (80-100); MEAN PLATELET VOLUME 8.1 fL (7.4-10.4); MONOCYTES # (AUTO) 0.88 x10^3/uL (0.2-0.8); MONOCYTES % (AUTO) 9 % (2-9); NEUTROPHILS # (AUTO) 6.02 x10^3/uL (1.8-6.8); NEUTROPHILS % (AUTO) 58 % (42-75); PLATELET COUNT 273 x10^3/uL (130-400); RED BLOOD COUNT 4.92 x10^6/uL (3.82-5.3)
[2018-01-17] MEDS ORDERED: AMPICILLIN/SULBACTAM 3 GM in SODIUM CHLORIDE 0.9% 100 ML IV ONE (08:30)
[2018-01-17] MEDS ORDERED: AZITHROMYCIN 500 MG in SODIUM CHLORIDE 0.9% 250 ML IV ONE (08:30)
[2018-01-17 08:33] LABS: ALANINE AMINOTRANSFERASE 23 U/L (12-78); ALBUMIN 3.6 g/dL (3.4-5.0); ANION GAP 5 mmol/L (5-15); CALCIUM 8.7 mg/dL (8.5-10.1); CHLORIDE 107 mmol/L (98-107); CREATININE 0.61 mg/dL (0.55-1.02)
[2018-01-17 08:48] LABS: ALKALINE PHOSPHATASE 62 U/L (45-117); BILIRUBIN,TOTAL 0.4 mg/dL (0.2-1.0); TOTAL PROTEIN 6.8 g/dL (6.4-8.2)
[2018-01-17] MEDS ORDERED: methylPREDNISolone SOD SUCC 125 MG/2 ML ONE (09:54)
[2018-01-17 11:23] VITALS: BP 152/54
[2018-01-17 11:32] VITALS: BP 152/54
[2018-01-17] MEDS ORDERED: ALBUTEROL/IPRATROPIUM 2.5MG/0.5MG, 3 ML NPPB PRN (12:00)
[2018-01-17] MEDS ORDERED: ENALAPRILAT 1.25 MG/ML, 2ML IVPush PRN (12:30)
[2018-01-17] MEDS ORDERED: ALBUTEROL SULFATE 2.5 MG/3 ML NPPB PRN (12:30)
[2018-01-17] MEDS ORDERED: SODIUM CHLORIDE NASAL SPRAY 45ML BOTTLE NAS PRN (12:30)
[2018-01-17] MEDS ORDERED: TEMPLATE NON-FORMULARY MED. (Albuterol Sulfate (Proair Respiclick) 2 PUFF(S)) INH SCH (12:30)
[2018-01-17] MEDS ORDERED: ALBUTEROL/IPRATROPIUM 2.5MG/0.5MG, 3 ML HHN SCH (12:30)
[2018-01-17] MEDS: LEVOFLOXACIN/PMX 750MG/150ML 150 ML IV SCH (12:55)
[2018-01-17] MEDS: METOPROLOL SUCCINATE 50 MG TAB.ER.24H PO SCH (12:55)
[2018-01-17] MEDS: ENOXAPARIN 40 MG/0.4 ML SQ SCH (12:55)
[2018-01-17] MEDS: GUAIFENESIN 200 MG TABLET PO SCH ×3 (12:55→21:52)
[2018-01-17 14:29] LABS: HEMOGLOBIN A1C 5.9 % (4.2-6.3)
[2018-01-17] MEDS ORDERED: ALBUTEROL/IPRATROPIUM 2.5MG/0.5MG, 3 ML NPPB SCH ×2 (15:00→18:30)
[2018-01-17 15:25] VITALS: BP 150/66
[2018-01-17] MEDS: methylPREDNISolone SOD SUCC 125 MG/2 ML IVPush SCH ×2 (16:03→21:52)
[2018-01-17] MEDS ORDERED: POLYETHYLENE GLYCOL 17 GM PACKET PO PRN (17:30)
[2018-01-17 19:00] VITALS: BP 115/68
[2018-01-17] MEDS: ALBUTEROL/IPRATROPIUM 2.5MG/0.5MG, 3 ML NPPB SCH (20:51)
[2018-01-17] MEDS: MONTELUKAST 10 MG TABLET PO SCH (21:00)
[2018-01-17] MEDS: DOCUSATE 100 MG CAPSULE PO SCH (21:52)
[2018-01-17] MEDS: LOVASTATIN 40 MG TABLET PO SCH (21:52)
[2018-01-17] MEDS: DIGOXIN 0.25 MG TABLET PO SCH (21:54)
[2018-01-17] MEDS: FLUTICASONE NASAL SPRAY 16GM NAS SCH (23:13)
[2018-01-18] MEDS: ALBUTEROL/IPRATROPIUM 2.5MG/0.5MG, 3 ML NPPB SCH ×4 (00:30→21:30)
[2018-01-18 02:00] VITALS: BP 145/69
[2018-01-18] MEDS: methylPREDNISolone SOD SUCC 125 MG/2 ML IVPush SCH (03:48)
[2018-01-18 05:33] LABS: ALBUMIN 3.5 g/dL (3.4-5.0); ANION GAP 8 mmol/L (5-15); BASOPHILS % (AUTO) 0 % (0-1); CHLORIDE 105 mmol/L (98-107); EOSINOPHILS # (AUTO) 0.01 x10^3/uL (0-0.4); EOSINOPHILS % (AUTO) 0 % (1-7); LYMPHOCYTES # (AUTO) 0.97 x10^3/uL (1-3.4); LYMPHOCYTES % (AUTO) 7 % (22-44); MD NO; MEAN CORPUSCULAR HGB CONC 33.2 g/dL (32.4-35.8); MEAN CORPUSCULAR VOLUME 87.5 fL (80-100); MEAN PLATELET VOLUME 8.9 fL (7.4-10.4); MONOCYTES # (AUTO) 0.09 x10^3/uL (0.2-0.8); MONOCYTES % (AUTO) 1 % (2-9); NEUTROPHILS # (AUTO) 13.66 x10^3/uL (1.8-6.8); NEUTROPHILS % (AUTO) 93 % (42-75); PLATELET COUNT 278 x10^3/uL (130-400); RED BLOOD COUNT 4.74 x10^6/uL (3.82-5.3); RED CELL DISTRIBUTION WIDTH 14.6 % (9.6-15.2)
[2018-01-18 05:44] LABS: ALANINE AMINOTRANSFERASE 24 U/L (12-78); ALKALINE PHOSPHATASE 58 U/L (45-117); BILIRUBIN,TOTAL 0.2 mg/dL (0.2-1.0); CREATININE 0.72 mg/dL (0.55-1.02); THYROID STIMULATING HORMONE 0.478 mIU/L (0.358-3.740); TOTAL PROTEIN 7.3 g/dL (6.4-8.2)
[2018-01-18] MEDS: GUAIFENESIN 200 MG TABLET PO SCH ×4 (06:26→21:08)
[2018-01-18 06:46] VITALS: BP 131/65
[2018-01-18] MEDS: DOCUSATE 100 MG CAPSULE PO SCH ×2 (09:00→21:07)
[2018-01-18] MEDS: FLUTICASONE NASAL SPRAY 16GM NAS SCH ×2 (09:10→21:07)
[2018-01-18] MEDS: METOPROLOL SUCCINATE 50 MG TAB.ER.24H PO SCH (09:10)
[2018-01-18] MEDS: FLUTICASONE/VILANTEROL 200-25MCG/INH INH SCH (09:10)
[2018-01-18] MEDS: LEVOFLOXACIN/PMX 750MG/150ML 150 ML IV SCH (12:04)
[2018-01-18] MEDS: methylPREDNISolone SOD SUCC 40 MG/ML IVPush SCH ×2 (12:05→19:59)
[2018-01-18] MEDS: ENOXAPARIN 40 MG/0.4 ML SQ SCH (12:10)
[2018-01-18 12:23] VITALS: BP 146/56
[2018-01-18 19:51] VITALS: BP 132/73
[2018-01-18] MEDS: MONTELUKAST 10 MG TABLET PO SCH (21:00)
[2018-01-18] MEDS: DIGOXIN 0.25 MG TABLET PO SCH (21:08)
[2018-01-18] MEDS: LOVASTATIN 40 MG TABLET PO SCH (21:08)
[2018-01-19] MEDS: ALBUTEROL/IPRATROPIUM 2.5MG/0.5MG, 3 ML NPPB SCH ×6 (03:00→21:00)
[2018-01-19 03:21] VITALS: BP 117/57
[2018-01-19] MEDS: methylPREDNISolone SOD SUCC 40 MG/ML IVPush SCH (03:33)
[2018-01-19] MEDS: GUAIFENESIN 200 MG TABLET PO SCH ×3 (05:24→16:03)
[2018-01-19 05:31] LABS: BASOPHILS # (AUTO) 0.02 x10^3/uL (0-0.1); BASOPHILS % (AUTO) 0 % (0-1); EOSINOPHILS % (AUTO) 0 % (1-7); LYMPHOCYTES # (AUTO) 1.65 x10^3/uL (1-3.4); LYMPHOCYTES % (AUTO) 10 % (22-44); MD NO; MEAN CORPUSCULAR HGB CONC 33.1 g/dL (32.4-35.8); MEAN CORPUSCULAR VOLUME 87.6 fL (80-100); MEAN PLATELET VOLUME 8.2 fL (7.4-10.4); MONOCYTES # (AUTO) 0.66 x10^3/uL (0.2-0.8); MONOCYTES % (AUTO) 4 % (2-9); NEUTROPHILS % (AUTO) 87 % (42-75); PLATELET COUNT 261 x10^3/uL (130-400); RED BLOOD COUNT 4.45 x10^6/uL (3.82-5.3); RED CELL DISTRIBUTION WIDTH 14.9 % (9.6-15.2)
[2018-01-19 05:42] LABS: ANION GAP 8 mmol/L (5-15); CALCIUM 8.4 mg/dL (8.5-10.1); CHLORIDE 107 mmol/L (98-107)
[2018-01-19 05:43] LABS: CREATININE 0.63 mg/dL (0.55-1.02)
[2018-01-19 07:15] VITALS: BP 129/66
[2018-01-19] MEDS: FLUTICASONE/VILANTEROL 200-25MCG/INH INH SCH (08:58)
[2018-01-19] MEDS: FLUTICASONE NASAL SPRAY 16GM NAS SCH ×2 (08:58→20:15)
[2018-01-19] MEDS: DOCUSATE 100 MG CAPSULE PO SCH ×2 (08:58→20:13)
[2018-01-19] MEDS: METOPROLOL SUCCINATE 50 MG TAB.ER.24H PO SCH (08:58)
[2018-01-19] MEDS: methylPREDNISolone SOD SUCC 125 MG/2 ML IVPush SCH ×3 (09:43→21:40)
[2018-01-19] MEDS: LEVOFLOXACIN/PMX 750MG/150ML 150 ML IV SCH (11:57)
[2018-01-19] MEDS: ENOXAPARIN 40 MG/0.4 ML SQ SCH (11:58)
[2018-01-19 13:00] VITALS: BP 117/65
[2018-01-19] MEDS: GUAIFENESIN/DM 200-20MG, 10ML UDC PO PRN ×2 (16:34→20:13)
[2018-01-19 18:54] VITALS: BP 136/72
[2018-01-19] MEDS: LOVASTATIN 40 MG TABLET PO SCH (20:13)
[2018-01-19] MEDS: DIGOXIN 0.25 MG TABLET PO SCH (20:13)
[2018-01-19] MEDS: MONTELUKAST 10 MG TABLET PO SCH (20:13)
[2018-01-20] MEDS: GUAIFENESIN/DM 200-20MG, 10ML UDC PO PRN ×5 (00:11→21:58)
[2018-01-20 01:55] VITALS: BP 144/66
[2018-01-20] MEDS: methylPREDNISolone SOD SUCC 125 MG/2 ML IVPush SCH ×3 (03:42→21:06)
[2018-01-20] MEDS: ALBUTEROL/IPRATROPIUM 2.5MG/0.5MG, 3 ML NPPB SCH ×4 (06:00→18:34)
[2018-01-20 07:19] VITALS: BP 128/74
[2018-01-20] MEDS: DOCUSATE 100 MG CAPSULE PO SCH ×2 (08:42→21:05)
[2018-01-20] MEDS: FLUTICASONE NASAL SPRAY 16GM NAS SCH ×2 (08:42→21:11)
[2018-01-20] MEDS: FLUTICASONE/VILANTEROL 200-25MCG/INH INH SCH (08:42)
[2018-01-20] MEDS: METOPROLOL SUCCINATE 50 MG TAB.ER.24H PO SCH (08:43)
[2018-01-20] MEDS: ENOXAPARIN 40 MG/0.4 ML SQ SCH (12:26)
[2018-01-20] MEDS: LEVOFLOXACIN 750 MG TABLET PO SCH (12:28)
[2018-01-20 13:29] VITALS: BP 133/71
[2018-01-20 19:27] VITALS: BP 137/71
[2018-01-20] MEDS: CALCIUM CARBONATE 500 MG TAB.CHEW PO PRN ×2 (21:03→21:58)
[2018-01-20] MEDS: LOVASTATIN 40 MG TABLET PO SCH (21:05)
[2018-01-20] MEDS: DIGOXIN 0.25 MG TABLET PO SCH (21:05)
[2018-01-20] MEDS: MONTELUKAST 10 MG TABLET PO SCH (21:05)
[2018-01-21 01:51] VITALS: BP 155/64
[2018-01-21] MEDS: methylPREDNISolone SOD SUCC 125 MG/2 ML IVPush SCH ×2 (03:39→11:18)
[2018-01-21] MEDS: ALBUTEROL/IPRATROPIUM 2.5MG/0.5MG, 3 ML NPPB SCH ×2 (06:00→09:51)
[2018-01-21 07:45] VITALS: BP 125/70
[2018-01-21] MEDS: FLUTICASONE/VILANTEROL 200-25MCG/INH INH SCH (09:13)
[2018-01-21] MEDS: METOPROLOL SUCCINATE 50 MG TAB.ER.24H PO SCH (09:13)
[2018-01-21] MEDS: FLUTICASONE NASAL SPRAY 16GM NAS SCH (09:13)
[2018-01-21] MEDS: DOCUSATE 100 MG CAPSULE PO SCH (09:13)
[2018-01-21] MEDS: GUAIFENESIN/DM 200-20MG, 10ML UDC PO PRN (09:21)
[2018-01-21] MEDS: LEVOFLOXACIN 750 MG TABLET PO SCH (11:56)
[2018-01-21] MEDS: ENOXAPARIN 40 MG/0.4 ML SQ SCH (13:00)
== END 2018-01-21 13:16 | disposition home or self-care (01) | DRG 193 ==
LOC: ED 08:14 → EDIP 08:59 → 4EST 11:16 → 4WST 01-20 05:39 → DCLOUNGE 01-21 13:02
PROVIDERS: ADMIT Internal Medicine; ATTEND Internal Medicine
DX: J18.1 Lobar pneumonia, unspecified organism (principal); J96.21 Acute and chronic respiratory failure with hypoxia; J44.0 Chronic obstructive pulmonary disease with (acute) lower respiratory infection; J44.1 Chronic obstructive pulmonary disease with (acute) exacerbation; J98.11 Atelectasis; E78.5 Hyperlipidemia, unspecified; F41.9 Anxiety disorder, unspecified; G47.33 Obstructive sleep apnea (adult) (pediatric); I10 Essential (primary) hypertension; Y92.89 Other specified places as the place of occurrence of the external cause; R73.9 Hyperglycemia, unspecified; D72.829 Elevated white blood cell count, unspecified; T38.0X5A Adverse effect of glucocorticoids and synthetic analogues, initial encounter; Z87.891 Personal history of nicotine dependence; Z90.710 Acquired absence of both cervix and uterus; Z98.82 Breast implant status; Z99.81 Dependence on supplemental oxygen
CPT/HCPCS: 36415; 36600; 71045; 71260; 80048; 80053; 80162; 82784; 82803; 83036; 83605; 84145; 84443; 85025; 85379; 87040; 87070; 87205; 93005; 94640; 96374; 96375; 99285; J0295; J1650; J1956; J7620; J2920; J2930

== ENCOUNTER 2018-02-13 16:56 | Inpatient (IN) | payer MEDICARE ==
[~2018-02-13] VITALS: Ht 157.5 cm; Wt 78.0 kg
[2018-02-13] MEDS ORDERED: ALBUTEROL/IPRATROPIUM 2.5MG/0.5MG, 3 ML ONE ×2 (17:41→18:22)
[2018-02-13 17:57] LABS: MEAN CORPUSCULAR HEMOGLOBIN 28.6 pg (27.0-34.8); MEAN CORPUSCULAR HGB CONC 33.3 g/dL (32.4-35.8); MEAN CORPUSCULAR VOLUME 85.9 fL (80-100); MEAN PLATELET VOLUME 7.4 fL (7.4-10.4); PLATELET COUNT 304 x10^3/uL (130-400); RED BLOOD COUNT 5.14 x10^6/uL (3.82-5.3); RED CELL DISTRIBUTION WIDTH 15.3 % (9.6-15.2)
[2018-02-13] MEDS: ALBUTEROL/IPRATROPIUM 2.5MG/0.5MG, 3 ML NPPB SCH ×3 (18:03→22:23)
[2018-02-13 18:04] LABS: ALANINE AMINOTRANSFERASE 34 U/L (12-78); ALBUMIN 3.5 g/dL (3.4-5.0); ANION GAP 5 mmol/L (5-15); BASOPHILS # (AUTO) 0.04 x10^3/uL (0-0.1); BASOPHILS % (AUTO) 0 % (0-1); CALCIUM 8.9 mg/dL (8.5-10.1); CHLORIDE 103 mmol/L (98-107); CREATININE 0.77 mg/dL (0.55-1.02); EOSINOPHILS # (AUTO) 0.05 x10^3/uL (0-0.4); EOSINOPHILS % (AUTO) 0 % (1-7); LYMPHOCYTES # (AUTO) 2.32 x10^3/uL (1-3.4); LYMPHOCYTES % (AUTO) 19 % (22-44); MONOCYTES # (AUTO) 0.77 x10^3/uL (0.2-0.8); MONOCYTES % (AUTO) 6 % (2-9); NEUTROPHILS # (AUTO) 9.35 x10^3/uL (1.8-6.8); NEUTROPHILS % (AUTO) 75 % (42-75)
[2018-02-13 18:06] LABS: MD NO
[2018-02-13 18:08] LABS: ALKALINE PHOSPHATASE 63 U/L (45-117); BILIRUBIN,TOTAL 0.2 mg/dL (0.2-1.0)
[2018-02-13] MEDS ORDERED: SODIUM CHLORIDE NASAL SPRAY 45ML BOTTLE NAS PRN (19:00)
[2018-02-13] MEDS ORDERED: morphine SULFATE 10 MG/ML, 1ML IVPush PRN (19:00)
[2018-02-13] MEDS ORDERED: ACETAMINOPHEN 325 MG TABLET PO PRN (19:00)
[2018-02-13] MEDS ORDERED: ONDANSETRON 2MG/ML, 2ML IVPush PRN (19:00)
[2018-02-13] MEDS ORDERED: TEMPLATE NON-FORMULARY MED. (Albuterol Sulfate (Proair Respiclick) 2 PUFF(S)) INH SCH (19:00)
[2018-02-13] MEDS ORDERED: DOXYCYCLINE 100 MG in DEXTROSE 5% 250 ML IV SCH (19:00)
[2018-02-13] MEDS ORDERED: ALBUTEROL/IPRATROPIUM 2.5MG/0.5MG, 3 ML NPPB PRN (19:30)
[2018-02-13] MEDS ORDERED: ALBUTEROL SULFATE 2.5MG/0.5ML ONE (19:36)
[2018-02-13] MEDS ORDERED: ALBUTEROL/IPRATROPIUM 2.5MG/0.5MG, 3 ML NPPB SCH (20:00)
[2018-02-13 20:28] VITALS: BP 119/69
[2018-02-13] MEDS ORDERED: TEMPLATE NON-FORMULARY MED. ([Oxygen] 2 L) NAS SCH (21:00)
[2018-02-13] MEDS: LOVASTATIN 40 MG TABLET PO SCH (21:46)
[2018-02-13] MEDS: DIGOXIN 0.25 MG TABLET PO SCH (21:46)
[2018-02-13] MEDS: MONTELUKAST 10 MG TABLET PO SCH (21:46)
[2018-02-13] MEDS: FLUTICASONE/VILANTEROL 200-25MCG/INH INH SCH (21:46)
[2018-02-13] MEDS: FLUTICASONE NASAL SPRAY 16GM NAS SCH (21:46)
[2018-02-13] MEDS: LORazepam 1MG TABLET PO PRN (21:46)
[2018-02-13] MEDS: SODIUM CHLORIDE FLUSH 10ML SYR IVF SCH (21:47)
[2018-02-13] MEDS: methylPREDNISolone SOD SUCC 125 MG/2 ML IVPush SCH (21:47)
[2018-02-13] MEDS: ENOXAPARIN 40 MG/0.4 ML SQ SCH (21:52)
[2018-02-13] MEDS: GUAIFENESIN/COD200MG-20MG/10ML LIQUID PO PRN (21:53)
[2018-02-13 22:43] VITALS: BP 119/69
[2018-02-14] MEDS: ALBUTEROL/IPRATROPIUM 2.5MG/0.5MG, 3 ML NPPB SCH ×4 (02:27→19:35)
[2018-02-14 02:28] VITALS: BP 146/77
[2018-02-14] MEDS: methylPREDNISolone SOD SUCC 125 MG/2 ML IVPush SCH ×3 (05:01→21:43)
[2018-02-14] MEDS: GUAIFENESIN/COD200MG-20MG/10ML LIQUID PO PRN (05:11)
[2018-02-14] MEDS: LORazepam 1MG TABLET PO PRN ×3 (05:11→21:42)
[2018-02-14 08:10] VITALS: BP 139/76
[2018-02-14] MEDS: FLUTICASONE NASAL SPRAY 16GM NAS SCH ×2 (08:46→21:43)
[2018-02-14] MEDS: SENNA/DOCUSATE TABLET PO SCH (08:47)
[2018-02-14] MEDS: METOPROLOL SUCCINATE 50 MG TAB.ER.24H PO SCH (08:47)
[2018-02-14] MEDS: FLUTICASONE/VILANTEROL 200-25MCG/INH INH SCH (08:47)
[2018-02-14] MEDS: SODIUM CHLORIDE FLUSH 10ML SYR IVF SCH ×2 (08:47→21:44)
[2018-02-14] MEDS ORDERED: TEMPLATE NON-FORMULARY MED. (Tiotropium Bromide** (Spiriva**) 18 MCG) INH SCH (09:00)
[2018-02-14] MEDS: GUAIFENESIN ER 600 MG TABLET PO SCH ×2 (09:14→21:42)
[2018-02-14 12:54] VITALS: BP 163/81
[2018-02-14] MEDS: ENOXAPARIN 40 MG/0.4 ML SQ SCH (18:28)
[2018-02-14 18:49] VITALS: BP 151/78
[2018-02-14] MEDS: MONTELUKAST 10 MG TABLET PO SCH (21:42)
[2018-02-14] MEDS: DIGOXIN 0.25 MG TABLET PO SCH (21:42)
[2018-02-14] MEDS: POLYETHYLENE GLYCOL 17 GM PACKET PO PRN (21:42)
[2018-02-14] MEDS: LOVASTATIN 40 MG TABLET PO SCH (21:43)
[2018-02-15] MEDS ORDERED: OXYMETAZOLINE NASAL SPRAY 0.05%, 15ML NAS ONE (00:30)
[2018-02-15 01:16] VITALS: BP 152/77
[2018-02-15] MEDS ORDERED: OXYMETAZOLINE NASAL SPRAY 0.05%, 15ML NAS PRN (02:30)
[2018-02-15 02:41] LABS: BASOPHILS # (AUTO) 0.03 x10^3/uL (0-0.1); BASOPHILS % (AUTO) 0 % (0-1); EOSINOPHILS # (AUTO) 0.03 x10^3/uL (0-0.4); EOSINOPHILS % (AUTO) 0 % (1-7); LYMPHOCYTES # (AUTO) 0.75 x10^3/uL (1-3.4); LYMPHOCYTES % (AUTO) 5 % (22-44); MD NO; MEAN CORPUSCULAR HEMOGLOBIN 28.3 pg (27.0-34.8); MEAN CORPUSCULAR HGB CONC 33.5 g/dL (32.4-35.8); MEAN CORPUSCULAR VOLUME 84.6 fL (80-100); MEAN PLATELET VOLUME 7.4 fL (7.4-10.4); MONOCYTES # (AUTO) 0.18 x10^3/uL (0.2-0.8); MONOCYTES % (AUTO) 1 % (2-9); NEUTROPHILS # (AUTO) 15.12 x10^3/uL (1.8-6.8); NEUTROPHILS % (AUTO) 94 % (42-75); PLATELET COUNT 329 x10^3/uL (130-400); RED CELL DISTRIBUTION WIDTH 15.4 % (9.6-15.2)
[2018-02-15] MEDS: ALBUTEROL/IPRATROPIUM 2.5MG/0.5MG, 3 ML NPPB SCH ×5 (02:45→20:15)
[2018-02-15] MEDS: LORazepam 1MG TABLET PO PRN ×2 (04:54→20:42)
[2018-02-15] MEDS: methylPREDNISolone SOD SUCC 125 MG/2 ML IVPush SCH ×3 (04:54→20:43)
[2018-02-15 06:47] VITALS: BP 147/73
[2018-02-15] MEDS: SODIUM CHLORIDE FLUSH 10ML SYR IVF SCH ×2 (09:00→20:43)
[2018-02-15] MEDS: FLUTICASONE NASAL SPRAY 16GM NAS SCH ×2 (09:00→20:43)
[2018-02-15] MEDS: SENNA/DOCUSATE TABLET PO SCH (09:55)
[2018-02-15] MEDS: GUAIFENESIN ER 600 MG TABLET PO SCH ×2 (09:55→20:42)
[2018-02-15] MEDS: METOPROLOL SUCCINATE 50 MG TAB.ER.24H PO SCH (09:55)
[2018-02-15] MEDS: FLUTICASONE/VILANTEROL 200-25MCG/INH INH SCH (09:55)
[2018-02-15 13:44] VITALS: BP 124/67
[2018-02-15 19:17] VITALS: BP 143/72
[2018-02-15] MEDS: DIGOXIN 0.25 MG TABLET PO SCH (20:42)
[2018-02-15] MEDS: MONTELUKAST 10 MG TABLET PO SCH (20:42)
[2018-02-15] MEDS: LOVASTATIN 40 MG TABLET PO SCH (20:42)
[2018-02-15] MEDS: POLYETHYLENE GLYCOL 17 GM PACKET PO PRN (21:30)
[2018-02-16] MEDS: ALBUTEROL/IPRATROPIUM 2.5MG/0.5MG, 3 ML NPPB SCH ×5 (02:25→20:20)
[2018-02-16 02:56] VITALS: BP 162/72
[2018-02-16 03:46] VITALS: BP 138/71
[2018-02-16] MEDS: methylPREDNISolone SOD SUCC 125 MG/2 ML IVPush SCH (05:30)
[2018-02-16 05:34] LABS: ANION GAP 5 mmol/L (5-15); CALCIUM 8.7 mg/dL (8.5-10.1); CHLORIDE 104 mmol/L (98-107)
[2018-02-16 05:35] LABS: BASOPHILS # (AUTO) 0.05 x10^3/uL (0-0.1); BASOPHILS % (AUTO) 0 % (0-1); CREATININE 0.75 mg/dL (0.55-1.02); EOSINOPHILS % (AUTO) 0 % (1-7); LYMPHOCYTES # (AUTO) 0.82 x10^3/uL (1-3.4); LYMPHOCYTES % (AUTO) 6 % (22-44); MD NO; MEAN CORPUSCULAR HEMOGLOBIN 28.2 pg (27.0-34.8); MEAN CORPUSCULAR HGB CONC 32.6 g/dL (32.4-35.8); MEAN CORPUSCULAR VOLUME 86.4 fL (80-100); MEAN PLATELET VOLUME 7.8 fL (7.4-10.4); MONOCYTES # (AUTO) 0.37 x10^3/uL (0.2-0.8); MONOCYTES % (AUTO) 3 % (2-9); NEUTROPHILS # (AUTO) 13.33 x10^3/uL (1.8-6.8); NEUTROPHILS % (AUTO) 91 % (42-75); PLATELET COUNT 300 x10^3/uL (130-400); RED BLOOD COUNT 4.81 x10^6/uL (3.82-5.3); RED CELL DISTRIBUTION WIDTH 15.6 % (9.6-15.2)
[2018-02-16 07:19] VITALS: BP 151/71
[2018-02-16] MEDS ORDERED: PRED20TA PO (08:38)
[2018-02-16] MEDS ORDERED: GUAI600T31 PO (08:38)
[2018-02-16] MEDS: FLUTICASONE NASAL SPRAY 16GM NAS SCH ×2 (09:00→21:22)
[2018-02-16] MEDS: SODIUM CHLORIDE FLUSH 10ML SYR IVF SCH ×2 (09:00→21:23)
[2018-02-16] MEDS: SENNA/DOCUSATE TABLET PO SCH (09:00)
[2018-02-16] MEDS: LORazepam 1MG TABLET PO PRN ×3 (09:31→21:59)
[2018-02-16] MEDS: FLUTICASONE/VILANTEROL 200-25MCG/INH INH SCH (09:33)
[2018-02-16] MEDS: GUAIFENESIN ER 600 MG TABLET PO SCH ×2 (09:33→21:22)
[2018-02-16] MEDS: METOPROLOL SUCCINATE 50 MG TAB.ER.24H PO SCH (09:33)
[2018-02-16] MEDS: DOCUSATE 100 MG CAPSULE PO PRN ×2 (09:35→21:59)
[2018-02-16 12:51] VITALS: BP 123/70
[2018-02-16] MEDS ORDERED: ALBUTEROL/IPRATROPIUM 2.5MG/0.5MG, 3 ML NPPB PRN (14:00)
[2018-02-16 19:13] VITALS: BP 122/67
[2018-02-16] MEDS: DIGOXIN 0.25 MG TABLET PO SCH (21:22)
[2018-02-16] MEDS: LOVASTATIN 40 MG TABLET PO SCH (21:22)
[2018-02-16] MEDS: MONTELUKAST 10 MG TABLET PO SCH (21:22)
[2018-02-17 01:29] VITALS: BP 122/71
[2018-02-17 06:30] VITALS: BP 105/68
[2018-02-17] MEDS: ALBUTEROL/IPRATROPIUM 2.5MG/0.5MG, 3 ML NPPB SCH ×3 (06:45→14:35)
[2018-02-17] MEDS: FLUTICASONE/VILANTEROL 200-25MCG/INH INH SCH (07:56)
[2018-02-17] MEDS: GUAIFENESIN ER 600 MG TABLET PO SCH (07:57)
[2018-02-17] MEDS: FLUTICASONE NASAL SPRAY 16GM NAS SCH (07:57)
[2018-02-17] MEDS: DOCUSATE 100 MG CAPSULE PO PRN (07:57)
[2018-02-17] MEDS: HYDROcodone/APAP 5/325 TABLET PO PRN ×2 (07:57→12:07)
[2018-02-17] MEDS: SENNA/DOCUSATE TABLET PO SCH (07:58)
[2018-02-17] MEDS: METOPROLOL SUCCINATE 50 MG TAB.ER.24H PO SCH (07:58)
[2018-02-17] MEDS: SODIUM CHLORIDE FLUSH 10ML SYR IVF SCH (07:58)
[2018-02-17 12:30] VITALS: BP 102/67
== END 2018-02-17 16:15 | disposition home or self-care (01) | DRG 189 ==
LOC: ED 18:00 → EDIP 18:25 → SUATTDRO 18:38 → 3NE 20:18 → DCLOUNGE 02-17 15:58
PROVIDERS: ADMIT Family Medicine; ATTEND Hospitalist
DX: J96.21 Acute and chronic respiratory failure with hypoxia (principal); J44.1 Chronic obstructive pulmonary disease with (acute) exacerbation; E66.01 Morbid (severe) obesity due to excess calories; E78.5 Hyperlipidemia, unspecified; F41.9 Anxiety disorder, unspecified; G47.33 Obstructive sleep apnea (adult) (pediatric); I10 Essential (primary) hypertension; R04.0 Epistaxis; Z82.5 Family history of asthma and other chronic lower respiratory diseases; Z87.891 Personal history of nicotine dependence; Z90.710 Acquired absence of both cervix and uterus; Z68.31 Body mass index [BMI] 31.0-31.9, adult; Z88.1 Allergy status to other antibiotic agents; Z88.8 Allergy status to other drugs, medicaments and biological substances
CPT/HCPCS: 36415; 71045; 80048; 80053; 83880; 85025; 93005; 94640; 99285; J1650; J7620; J2930; J7512

== ENCOUNTER 2018-04-09 08:01 | Day surgery (SDC) | payer MEDICARE ==
[~2018-04-09] VITALS: Ht 157.5 cm; Wt 75.2 kg
[~2018-04-09 08:01] MED LIST changes: +FLUT1BLS INH; +GUAI600T31 PO; +IPRA3AMP30 INH; +MOME17SP NS
[2018-04-09] MEDS ORDERED: SODIUM CHLORIDE 0.9% 1,000 ML IV SCH (08:30)
[2018-04-09] MEDS ORDERED: MIDAZOLAM 1 MG/ML, 5ML ONE (08:34)
[2018-04-09] MEDS ORDERED: FENTANYL PF 100 MCG/2ML ONE ×2 (08:34)
[2018-04-09] MEDS ORDERED: GLYCOPYRROLATE 0.4 MG/2 ML, 2ML ONE (08:34)
[2018-04-09 09:07] VITALS: BP 118/76
[2018-04-09] MEDS ORDERED: ALBUTEROL SULFATE 2.5 MG/3 ML ONE ×2 (09:14→13:17)
[2018-04-09] MEDS ORDERED: PRED20TA PO (09:22)
[2018-04-09] MEDS ORDERED: ALBUTEROL SULFATE 2.5 MG/3 ML NPPB SCH (13:05)
[2018-04-09] MEDS ORDERED: DIPHENHYDRAMINE 50 MG/ML, 1ML ONE (14:10)
[2018-04-09] MEDS ORDERED: LIDOCAINE 2%, 20ML ONE (14:58)
[2018-04-22] MEDS ORDERED: PRED10TA PO (16:12)
== END 2018-04-09 14:15 | disposition home or self-care (01) ==
LOC: OUT 08:01
PROVIDERS: ATTEND Internal Medicine
DX: J45.50 Severe persistent asthma, uncomplicated (principal); E11.9 Type 2 diabetes mellitus without complications; G47.33 Obstructive sleep apnea (adult) (pediatric); Z87.01 Personal history of pneumonia (recurrent); E78.5 Hyperlipidemia, unspecified; F41.9 Anxiety disorder, unspecified; Z72.89 Other problems related to lifestyle; Z87.891 Personal history of nicotine dependence; Z90.710 Acquired absence of both cervix and uterus
CPT/HCPCS: 31660; 94060; 94640; 99152; 99153; C1886; J1200; J2250; J3010; J3490; J7030; J7613; 94010

== ENCOUNTER → 2018-04-13 | Outpatient (CLI) | payer MEDICARE | END | disposition home or self-care (01) | LOC: RAD 16:59 | PROVIDERS: ATTEND Internal Medicine | DX: J45.50 Severe persistent asthma, uncomplicated (principal); J44.9 Chronic obstructive pulmonary disease, unspecified | CPT/HCPCS: 71046 ==

== ENCOUNTER 2018-04-19 20:56 | Inpatient (IN) | payer MEDICARE ==
[~2018-04-19] VITALS: Ht 157.5 cm; Wt 83.2 kg
[2018-04-19] MEDS ORDERED: ALBUTEROL/IPRATROPIUM 2.5MG/0.5MG, 3 ML NPPB ONE (21:30)
[2018-04-19] MEDS ORDERED: SODIUM CHLORIDE FLUSH 10ML SYR IVF ONE (21:30)
[2018-04-19 22:02] LABS: BASOPHILS # (AUTO) 0.03 x10^3/uL (0-0.1); BASOPHILS % (AUTO) 0 % (0-1); EOSINOPHILS % (AUTO) 0 % (1-7); LYMPHOCYTES # (AUTO) 0.82 x10^3/uL (1-3.4); LYMPHOCYTES % (AUTO) 6 % (22-44); MD NO; MEAN CORPUSCULAR HEMOGLOBIN 29.6 pg (27.0-34.8); MEAN CORPUSCULAR HGB CONC 33.9 g/dL (32.4-35.8); MEAN CORPUSCULAR VOLUME 87.2 fL (80-100); MEAN PLATELET VOLUME 7.1 fL (7.4-10.4); MONOCYTES # (AUTO) 0.65 x10^3/uL (0.2-0.8); MONOCYTES % (AUTO) 5 % (2-9); NEUTROPHILS # (AUTO) 12.34 x10^3/uL (1.8-6.8); NEUTROPHILS % (AUTO) 89 % (42-75); PLATELET COUNT 270 x10^3/uL (130-400); RED BLOOD COUNT 4.13 x10^6/uL (3.82-5.3); RED CELL DISTRIBUTION WIDTH 18.7 % (9.6-15.2)
[2018-04-19 22:12] LABS: ALANINE AMINOTRANSFERASE 48 U/L (12-78); ALBUMIN 2.9 g/dL (3.4-5.0); ANION GAP 7 mmol/L (5-15); CALCIUM 9.3 mg/dL (8.5-10.1); CHLORIDE 97 mmol/L (98-107); CREATININE 0.85 mg/dL (0.55-1.02)
[2018-04-19 22:17] LABS: ALKALINE PHOSPHATASE 115 U/L (45-117); BILIRUBIN,TOTAL 0.3 mg/dL (0.2-1.0); TOTAL PROTEIN 6.2 g/dL (6.4-8.2); TROPONIN I < 0.015 ng/mL (0.000-0.045)
[2018-04-19] MEDS ORDERED: LORazepam 2 MG/ML, 1ML ONE (22:28)
[2018-04-19] MEDS ORDERED: LORazepam 2 MG/ML, 1ML IVPush ONE (22:30)
[2018-04-19] MEDS ORDERED: SODIUM CHLORIDE FLUSH 10ML SYR IVF PRN (23:30)
[2018-04-20] MEDS ORDERED: TEMAZEPAM 15 MG CAPSULE PO PRN
[2018-04-20] MEDS ORDERED: ONDANSETRON ODT 4 MG PO PRN
[2018-04-20] MEDS ORDERED: TEMPLATE NON-FORMULARY MED. (Albuterol Sulfate (Proair Respiclick) 2 PUFF(S)) INH SCH
[2018-04-20] MEDS ORDERED: ALBUTEROL/IPRATROPIUM 2.5MG/0.5MG, 3 ML NPPB PRN
[2018-04-20] MEDS ORDERED: ALBUTEROL/IPRATROPIUM 2.5MG/0.5MG, 3 ML HHN SCH
[2018-04-20] MEDS ORDERED: hydrALAzine 20 MG/ML, 1ML IVPush PRN
[2018-04-20] MEDS ORDERED: ACETAMINOPHEN 325 MG TABLET PO PRN
[2018-04-20 00:09] VITALS: BP 134/82
[2018-04-20] MEDS: DIGOXIN 0.25 MG TABLET PO SCH ×3 (00:18→20:29)
[2018-04-20] MEDS: ENOXAPARIN 40 MG/0.4 ML SQ SCH (00:19)
[2018-04-20] MEDS: GUAIFENESIN/DM 200-20MG, 10ML UDC PO PRN (00:19)
[2018-04-20] MEDS: MONTELUKAST 10 MG TABLET PO SCH ×3 (00:19→20:29)
[2018-04-20] MEDS: methylPREDNISolone SOD SUCC 125 MG/2 ML IVPush SCH ×3 (00:20→11:39)
[2018-04-20] MEDS ORDERED: DIPHENHYDRAMINE 25 MG CAPSULE PO ONE (02:00)
[2018-04-20 02:55] VITALS: BP 127/79
[2018-04-20] MEDS: ALBUTEROL/IPRATROPIUM 2.5MG/0.5MG, 3 ML NPPB SCH ×6 (05:00→23:00)
[2018-04-20 07:06] VITALS: BP 148/80
[2018-04-20 07:20] LABS: MEAN CORPUSCULAR HEMOGLOBIN 28.9 pg (27.0-34.8); MEAN CORPUSCULAR HGB CONC 33.4 g/dL (32.4-35.8); MEAN CORPUSCULAR VOLUME 86.8 fL (80-100); MEAN PLATELET VOLUME 7.2 fL (7.4-10.4); PLATELET COUNT 250 x10^3/uL (130-400); RED CELL DISTRIBUTION WIDTH 18.2 % (9.6-15.2)
[2018-04-20 07:32] LABS: ALANINE AMINOTRANSFERASE 49 U/L (12-78); ALBUMIN 2.9 g/dL (3.4-5.0); ANION GAP 9 mmol/L (5-15); CALCIUM 8.8 mg/dL (8.5-10.1); CHLORIDE 98 mmol/L (98-107); CREATININE 0.76 mg/dL (0.55-1.02)
[2018-04-20 07:34] LABS: ALKALINE PHOSPHATASE 110 U/L (45-117); BILIRUBIN,TOTAL 0.3 mg/dL (0.2-1.0); TOTAL PROTEIN 6.3 g/dL (6.4-8.2)
[2018-04-20] MEDS: METOPROLOL SUCCINATE 50 MG TAB.ER.24H PO SCH (07:58)
[2018-04-20 08:09] LABS: BASOPHILS % (AUTO) 0 % (0-1); EOSINOPHILS % (AUTO) 0 % (1-7); LYMPHOCYTES # (AUTO) 0.38 x10^3/uL (1-3.4); LYMPHOCYTES % (AUTO) 3 % (22-44); MD SCAN; MONOCYTES # (AUTO) 0.09 x10^3/uL (0.2-0.8); MONOCYTES % (AUTO) 1 % (2-9); NEUTROPHILS # (AUTO) 12.45 x10^3/uL (1.8-6.8); NEUTROPHILS % (AUTO) 96 % (42-75)
[2018-04-20 08:17] LABS: HEMOGLOBIN A1C 11.3 % (4.2-6.3)
[2018-04-20] MEDS: INSULIN LISPRO 100 UNITS/ML, PEN SQ-INSULIN SCH ×4 (08:31→20:29)
[2018-04-20] MEDS ORDERED: LEVOFLOXACIN 750 MG TABLET PO SCH (09:00)
[2018-04-20] MEDS ORDERED: IPRATROPIUM 0.5 MG/2.5 ML INHA HHN SCH (09:00)
[2018-04-20] MEDS ORDERED: ALPR-475 PO (09:28)
[2018-04-20] MEDS: FLUTICASONE/VILANTEROL 200-25MCG/INH INH SCH (11:39)
[2018-04-20] MEDS: FLUTICASONE NASAL SPRAY 16GM NAS SCH (11:40)
[2018-04-20] MEDS: INSULIN GLARGINE 100 UNITS/ML, PEN SQ-INSULIN SCH ×2 (12:21→20:30)
[2018-04-20] MEDS: metFORMIN 850 MG TABLET PO SCH ×2 (12:22→16:17)
[2018-04-20] MEDS: LORazepam 1MG TABLET PO PRN ×3 (12:22→20:28)
[2018-04-20 13:01] VITALS: BP 145/74
[2018-04-20 20:00] VITALS: BP 149/73
[2018-04-20] MEDS: LOVASTATIN 40 MG TABLET PO SCH ×2 (20:29)
[2018-04-21 02:00] VITALS: BP 125/72
[2018-04-21] MEDS: ALBUTEROL/IPRATROPIUM 2.5MG/0.5MG, 3 ML NPPB SCH ×6 (03:00→23:00)
[2018-04-21] MEDS: ENOXAPARIN 40 MG/0.4 ML SQ SCH (05:03)
[2018-04-21 07:16] VITALS: BP 133/73
[2018-04-21] MEDS: FLUTICASONE/VILANTEROL 200-25MCG/INH INH SCH (07:45)
[2018-04-21] MEDS: FLUTICASONE NASAL SPRAY 16GM NAS SCH (07:45)
[2018-04-21] MEDS: metFORMIN 850 MG TABLET PO SCH ×2 (07:46→16:42)
[2018-04-21] MEDS: METOPROLOL SUCCINATE 50 MG TAB.ER.24H PO SCH (07:46)
[2018-04-21] MEDS: INSULIN LISPRO 100 UNITS/ML, PEN SQ-INSULIN SCH ×4 (07:47→21:11)
[2018-04-21] MEDS: INSULIN GLARGINE 100 UNITS/ML, PEN SQ-INSULIN SCH ×2 (07:48→21:10)
[2018-04-21] MEDS: GUAIFENESIN/DM 200-20MG, 10ML UDC PO PRN (08:23)
[2018-04-21] MEDS: GUAIFENESIN ER 600 MG TABLET PO SCH ×2 (09:27→21:09)
[2018-04-21] MEDS: LORazepam 1MG TABLET PO PRN ×3 (12:14→21:10)
[2018-04-21 13:27] VITALS: BP 166/93
[2018-04-21] MEDS ORDERED: ACETYLCYSTEINE 20%, 4ML NPPB SCH (15:00)
[2018-04-21 20:49] VITALS: BP 109/68
[2018-04-21] MEDS: DOCUSATE 100 MG CAPSULE PO PRN (21:09)
[2018-04-21] MEDS: DIGOXIN 0.25 MG TABLET PO SCH (21:09)
[2018-04-21] MEDS: MONTELUKAST 10 MG TABLET PO SCH (21:10)
[2018-04-21] MEDS: LOVASTATIN 40 MG TABLET PO SCH (21:10)
[2018-04-22] VITALS (10 sets, daily range): BP systolic 112–157; BP diastolic 65–81
[2018-04-22] MEDS: ALBUTEROL/IPRATROPIUM 2.5MG/0.5MG, 3 ML NPPB SCH ×4 (02:21→14:54)
[2018-04-22 05:37] LABS: BASOPHILS % (AUTO) 0 % (0-1); EOSINOPHILS % (AUTO) 0 % (1-7); LYMPHOCYTES # (AUTO) 0.81 x10^3/uL (1-3.4); LYMPHOCYTES % (AUTO) 7 % (22-44); MD NO; MEAN CORPUSCULAR HEMOGLOBIN 29.9 pg (27.0-34.8); MEAN CORPUSCULAR HGB CONC 33.9 g/dL (32.4-35.8); MEAN CORPUSCULAR VOLUME 88.2 fL (80-100); MEAN PLATELET VOLUME 7.2 fL (7.4-10.4); MONOCYTES # (AUTO) 0.45 x10^3/uL (0.2-0.8); MONOCYTES % (AUTO) 4 % (2-9); NEUTROPHILS # (AUTO) 10.84 x10^3/uL (1.8-6.8); NEUTROPHILS % (AUTO) 90 % (42-75); PLATELET COUNT 243 x10^3/uL (130-400); RED BLOOD COUNT 3.85 x10^6/uL (3.82-5.3); RED CELL DISTRIBUTION WIDTH 18.4 % (9.6-15.2)
[2018-04-22 05:42] LABS: ANION GAP 7 mmol/L (5-15); CALCIUM 8.6 mg/dL (8.5-10.1); CHLORIDE 98 mmol/L (98-107)
[2018-04-22 05:44] LABS: CREATININE 0.58 mg/dL (0.55-1.02)
[2018-04-22] MEDS: ENOXAPARIN 40 MG/0.4 ML SQ SCH (05:48)
[2018-04-22] MEDS: INSULIN LISPRO 100 UNITS/ML, PEN SQ-INSULIN SCH ×4 (07:00→21:17)
[2018-04-22] MEDS: FLUTICASONE NASAL SPRAY 16GM NAS SCH (07:41)
[2018-04-22] MEDS: FLUTICASONE/VILANTEROL 200-25MCG/INH INH SCH (07:41)
[2018-04-22] MEDS: METOPROLOL SUCCINATE 50 MG TAB.ER.24H PO SCH (07:41)
[2018-04-22] MEDS: GUAIFENESIN ER 600 MG TABLET PO SCH ×2 (07:42→21:16)
[2018-04-22] MEDS: metFORMIN 850 MG TABLET PO SCH ×2 (07:43→17:11)
[2018-04-22] MEDS: INSULIN GLARGINE 100 UNITS/ML, PEN SQ-INSULIN SCH ×2 (07:44→21:16)
[2018-04-22] MEDS: LORazepam 1MG TABLET PO PRN ×4 (07:48→23:18)
[2018-04-22] MEDS ORDERED: FUROSEMIDE 40 MG/4 ML IV ONE (09:30)
[2018-04-22] MEDS ORDERED: PRED10TA PO ×2 (16:12)
[2018-04-22] MEDS ORDERED: INSU100I13 SQ-INSULIN (16:12)
[2018-04-22] MEDS ORDERED: GUAI600T31 PO (16:12)
[2018-04-22] MEDS ORDERED: METF500T17 PO (16:12)
[2018-04-22] MEDS: DIGOXIN 0.25 MG TABLET PO SCH (21:15)
[2018-04-22] MEDS: LOVASTATIN 40 MG TABLET PO SCH (21:15)
[2018-04-22] MEDS: MONTELUKAST 10 MG TABLET PO SCH (21:16)
[2018-04-22] MEDS: DOCUSATE 100 MG CAPSULE PO PRN (23:17)
[2018-04-22] MEDS: ALBUTEROL/IPRATROPIUM 2.5MG/0.5MG, 3 ML NPPB PRN (23:33)
[2018-04-23 03:02] VITALS: BP 120/65
[2018-04-23] MEDS: ENOXAPARIN 40 MG/0.4 ML SQ SCH (05:35)
[2018-04-23] MEDS: INSULIN LISPRO 100 UNITS/ML, PEN SQ-INSULIN SCH ×2 (07:00→11:00)
[2018-04-23 07:53] VITALS: BP 122/74
[2018-04-23] MEDS: FLUTICASONE NASAL SPRAY 16GM NAS SCH (07:56)
[2018-04-23] MEDS: METOPROLOL SUCCINATE 50 MG TAB.ER.24H PO SCH (07:56)
[2018-04-23] MEDS: FLUTICASONE/VILANTEROL 200-25MCG/INH INH SCH (07:56)
[2018-04-23] MEDS: GUAIFENESIN ER 600 MG TABLET PO SCH (07:56)
[2018-04-23] MEDS: metFORMIN 850 MG TABLET PO SCH (07:56)
[2018-04-23] MEDS: INSULIN GLARGINE 100 UNITS/ML, PEN SQ-INSULIN SCH (07:59)
[2018-04-23] MEDS: ALBUTEROL/IPRATROPIUM 2.5MG/0.5MG, 3 ML NPPB PRN (12:40)
[2018-04-29] MEDS ORDERED: PRED20TA PO (12:50)
[2018-05-04] MEDS ORDERED: METF500T17 PO (11:49)
[2018-05-04] MEDS ORDERED: PRED20TA PO (11:49)
[2018-05-04] MEDS ORDERED: GUAI600T80 PO (11:49)
== END 2018-04-23 17:57 | disposition home or self-care (01) | DRG 871 ==
LOC: ED 21:57 → EDIP 23:21 → 4WST 23:51
PROVIDERS: ADMIT Hospitalist; ATTEND Hospitalist
DX: A41.9 Sepsis, unspecified organism (principal); J18.9 Pneumonia, unspecified organism; J96.20 Acute and chronic respiratory failure, unspecified whether with hypoxia or hypercapnia; J44.1 Chronic obstructive pulmonary disease with (acute) exacerbation; J44.0 Chronic obstructive pulmonary disease with (acute) lower respiratory infection; I10 Essential (primary) hypertension; G47.33 Obstructive sleep apnea (adult) (pediatric); E78.5 Hyperlipidemia, unspecified; E11.65 Type 2 diabetes mellitus with hyperglycemia; T38.0X5A Adverse effect of glucocorticoids and synthetic analogues, initial encounter; E66.01 Morbid (severe) obesity due to excess calories; Z88.1 Allergy status to other antibiotic agents; Z99.81 Dependence on supplemental oxygen; Z87.891 Personal history of nicotine dependence; Z79.52 Long term (current) use of systemic steroids; Z82.5 Family history of asthma and other chronic lower respiratory diseases; Z90.710 Acquired absence of both cervix and uterus; Y92.89 Other specified places as the place of occurrence of the external cause; Z88.8 Allergy status to other drugs, medicaments and biological substances; Z68.33 Body mass index [BMI] 33.0-33.9, adult
CPT/HCPCS: 36415; 71045; 80048; 80053; 80162; 82947; 82962; 83036; 83880; 84484; 85025; 93005; 94640; 96374; G0378; J1650; J1940; J7620; J1815; J2060; J2930; J7512; Q0163

== ENCOUNTER → 2018-05-04 | Outpatient (CLI) | payer MEDICARE ==
[~2018-05-04] MED LIST changes: +ALPR-475 PO; +GUAI600T80 PO; +INSU100I13 SQ-INSULIN; +METF500T17 PO
== END | disposition home or self-care (01) ==
LOC: STAR 10:59
PROVIDERS: ATTEND Internal Medicine
DX: Z02.9 Encounter for administrative examinations, unspecified (principal)

== ENCOUNTER 2018-05-07 06:34 | Day surgery (SDC) | payer MEDICARE ==
[~2018-05-07] VITALS: Ht 157.5 cm; Wt 72.3 kg
[2018-05-07] MEDS ORDERED: SODIUM CHLORIDE 0.9% 1,000 ML IV SCH (07:05)
[2018-05-07 07:35] VITALS: BP 122/76
[2018-05-07] MEDS ORDERED: ALBUTEROL SULFATE 2.5 MG/3 ML ONE (07:37)
[2018-05-07] MEDS ORDERED: DIPHENHYDRAMINE 50 MG/ML, 1ML ONE (07:50)
[2018-05-07] MEDS ORDERED: GLYCOPYRROLATE 0.4 MG/2 ML, 2ML ONE (07:50)
[2018-05-07] MEDS ORDERED: MIDAZOLAM 1 MG/ML, 5ML ONE (08:15)
[2018-05-07] MEDS ORDERED: FENTANYL PF 100 MCG/2ML ONE (08:15)
[2018-05-07] MEDS ORDERED: LIDOCAINE 4% TOPICAL SOLUTION 50 ML ONE (12:00)
== END 2018-05-07 13:10 | disposition home or self-care (01) ==
LOC: OUT 06:34
PROVIDERS: ATTEND Internal Medicine
DX: J45.50 Severe persistent asthma, uncomplicated (principal); F41.9 Anxiety disorder, unspecified; E78.5 Hyperlipidemia, unspecified; E11.9 Type 2 diabetes mellitus without complications; K21.9 Gastro-esophageal reflux disease without esophagitis; I10 Essential (primary) hypertension; J32.0 Chronic maxillary sinusitis; Z88.1 Allergy status to other antibiotic agents; Z88.8 Allergy status to other drugs, medicaments and biological substances; Z79.1 Long term (current) use of non-steroidal anti-inflammatories (NSAID); Z79.4 Long term (current) use of insulin; Z72.89 Other problems related to lifestyle; Z79.899 Other long term (current) drug therapy; Z87.891 Personal history of nicotine dependence; Z82.5 Family history of asthma and other chronic lower respiratory diseases
CPT/HCPCS: 31660; 82962; 94640; 99152; 99153; J1200; J2250; J3010; J7030

== ENCOUNTER 2018-05-11 13:42 | Inpatient (IN) | payer MEDICARE ==
[~2018-05-11] VITALS: Ht 157.5 cm; Wt 79.6 kg
[2018-05-11] MEDS ORDERED: methylPREDNISolone SOD SUCC 125 MG/2 ML ONE (14:22)
[2018-05-11] MEDS ORDERED: SODIUM CHLORIDE FLUSH 10ML SYR IVF ONE (14:30)
[2018-05-11] MEDS ORDERED: methylPREDNISolone SOD SUCC 125 MG/2 ML IVP ONE (14:30)
[2018-05-11] MEDS ORDERED: ALBUTEROL/IPRATROPIUM 2.5MG/0.5MG, 3 ML ONE (14:32)
[2018-05-11] MEDS: ALBUTEROL/IPRATROPIUM 2.5MG/0.5MG, 3 ML NPPB SCH ×3 (14:38→18:37)
[2018-05-11 14:40] LABS: MEAN CORPUSCULAR HEMOGLOBIN 29.8 pg (27.0-34.8); MEAN CORPUSCULAR HGB CONC 32.9 g/dL (32.4-35.8); MEAN CORPUSCULAR VOLUME 90.4 fL (80-100); MEAN PLATELET VOLUME 7.6 fL (7.4-10.4); PLATELET COUNT 234 x10^3/uL (130-400); RED BLOOD COUNT 4.37 x10^6/uL (3.82-5.3); RED CELL DISTRIBUTION WIDTH 17.7 % (9.6-15.2)
[2018-05-11 14:48] LABS: INTERNATIONAL NORMALIZED RATIO 1.01 (0.93-1.1); PROTHROMBIN TIME 10.7 Seconds (9.6-11.5)
[2018-05-11 14:52] LABS: ALANINE AMINOTRANSFERASE 51 U/L (12-78); ALBUMIN 3.3 g/dL (3.4-5.0); ANION GAP 13 mmol/L (5-15); CALCIUM 9.2 mg/dL (8.5-10.1); CHLORIDE 101 mmol/L (98-107); CREATININE 0.79 mg/dL (0.55-1.02)
[2018-05-11 14:56] LABS: ALKALINE PHOSPHATASE 62 U/L (45-117); BILIRUBIN,TOTAL 0.4 mg/dL (0.2-1.0); TOTAL PROTEIN 6.6 g/dL (6.4-8.2); TROPONIN I < 0.015 ng/mL (0.000-0.045)
[2018-05-11] MEDS ORDERED: ALBUTEROL/IPRATROPIUM 2.5MG/0.5MG, 3 ML NPPB PRN (15:00)
[2018-05-11 15:17] LABS: BASOPHILS % (AUTO) 0 % (0-1); EOSINOPHILS % (AUTO) 0 % (1-7); LYMPHOCYTES # (AUTO) 0.47 x10^3/uL (1-3.4); LYMPHOCYTES % (AUTO) 3 % (22-44); MONOCYTES # (AUTO) 0.44 x10^3/uL (0.2-0.8); MONOCYTES % (AUTO) 3 % (2-9); NEUTROPHILS # (AUTO) 12.68 x10^3/uL (1.8-6.8); NEUTROPHILS % (AUTO) 93 % (42-75)
[2018-05-11 15:19] LABS: MD SCAN
[2018-05-11] MEDS ORDERED: LEVOFLOXACIN/PMX 750MG/150ML 150 ML ONE (15:50)
[2018-05-11] MEDS ORDERED: LEVOFLOXACIN/PMX 750MG/150ML 150 ML IVPB ONE (16:00)
[2018-05-11] MEDS ORDERED: SODIUM CHLORIDE FLUSH 10ML SYR IVF PRN (16:00)
[2018-05-11] MEDS: SODIUM CHLORIDE 0.9% 1,000 ML IV SCH ×3 (16:08→20:22)
[2018-05-11] MEDS ORDERED: ENALAPRILAT 1.25 MG/ML, 2ML IVPush PRN (16:30)
[2018-05-11] MEDS ORDERED: VANCOMYCIN PER PHARMACY MC PRN (16:30)
[2018-05-11] MEDS ORDERED: ACETAMINOPHEN 325 MG TABLET PO PRN (16:30)
[2018-05-11] MEDS ORDERED: ONDANSETRON 2MG/ML, 2ML IVPush PRN (16:30)
[2018-05-11] MEDS ORDERED: ALBUTEROL/IPRATROPIUM 2.5MG/0.5MG, 3 ML HHN SCH (16:30)
[2018-05-11 17:25] VITALS: BP 166/79
[2018-05-11] MEDS: ENOXAPARIN 40 MG/0.4 ML SQ SCH (17:47)
[2018-05-11] MEDS: GUAIFENESIN 200 MG TABLET PO SCH ×2 (17:47→20:43)
[2018-05-11] MEDS: PIPERACILLIN/TAZO/PMX 4.5GM 100 ML IV SCH (18:20)
[2018-05-11 19:24] VITALS: BP 129/70
[2018-05-11] MEDS: VANCOMYCIN 1,400 MG in SODIUM CHLORIDE 0.9% 250 ML IV SCH (20:37)
[2018-05-11] MEDS: DIGOXIN 0.25 MG TABLET PO SCH (20:42)
[2018-05-11] MEDS: LOVASTATIN 40 MG TABLET PO SCH (20:42)
[2018-05-11] MEDS: methylPREDNISolone SOD SUCC 125 MG/2 ML IVPush SCH (20:42)
[2018-05-11] MEDS: MONTELUKAST 10 MG TABLET PO SCH (20:43)
[2018-05-11 20:47] VITALS: BP 117/68
[2018-05-11] MEDS ORDERED: INSULIN GLARGINE 100 UNITS/ML, PEN SQ-INSULIN SCH (21:00)
[2018-05-11] MEDS ORDERED: SENNOSIDES 8.6 MG TABLET PO PRN (21:00)
[2018-05-11] MEDS: INSULIN LISPRO 100 UNITS/ML, PEN SQ-INSULIN SCH (21:23)
[2018-05-12 00:31] VITALS: BP 140/65
[2018-05-12] MEDS: PIPERACILLIN/TAZO/PMX 4.5GM 100 ML IV SCH ×4 (01:07→18:01)
[2018-05-12] MEDS: SODIUM CHLORIDE 0.9% 1,000 ML IV SCH ×3 (01:08→12:52)
[2018-05-12] MEDS ORDERED: ALBUTEROL/IPRATROPIUM 2.5MG/0.5MG, 3 ML ONE (01:25)
[2018-05-12] MEDS: methylPREDNISolone SOD SUCC 125 MG/2 ML IVPush SCH ×4 (02:47→20:51)
[2018-05-12] MEDS: GUAIFENESIN 200 MG TABLET PO SCH ×4 (04:55→20:51)
[2018-05-12 05:59] LABS: MEAN CORPUSCULAR HEMOGLOBIN 30.8 pg (27.0-34.8); MEAN CORPUSCULAR VOLUME 90.8 fL (80-100); MEAN PLATELET VOLUME 7.1 fL (7.4-10.4); PLATELET COUNT 171 x10^3/uL (130-400); RED BLOOD COUNT 3.44 x10^6/uL (3.82-5.3); RED CELL DISTRIBUTION WIDTH 17.5 % (9.6-15.2)
[2018-05-12 06:15] LABS: ALBUMIN 2.8 g/dL (3.4-5.0); ANION GAP 6 mmol/L (5-15); CALCIUM 7.9 mg/dL (8.5-10.1); CHLORIDE 106 mmol/L (98-107)
[2018-05-12 06:20] LABS: ALANINE AMINOTRANSFERASE 50 U/L (12-78); ALKALINE PHOSPHATASE 58 U/L (45-117); BILIRUBIN,TOTAL 0.5 mg/dL (0.2-1.0); TOTAL PROTEIN 5.6 g/dL (6.4-8.2)
[2018-05-12 06:31] LABS: BASOPHILS % (AUTO) 0 % (0-1); EOSINOPHILS % (AUTO) 0 % (1-7); LYMPHOCYTES # (AUTO) 0.26 x10^3/uL (1-3.4); LYMPHOCYTES % (AUTO) 3 % (22-44); MONOCYTES # (AUTO) 0.22 x10^3/uL (0.2-0.8); MONOCYTES % (AUTO) 2 % (2-9); NEUTROPHILS # (AUTO) 8.65 x10^3/uL (1.8-6.8); NEUTROPHILS % (AUTO) 95 % (42-75)
[2018-05-12 06:34] LABS: MD SCAN
[2018-05-12] MEDS: ALBUTEROL/IPRATROPIUM 2.5MG/0.5MG, 3 ML NPPB SCH ×4 (07:00→18:32)
[2018-05-12 07:11] VITALS: BP 146/68
[2018-05-12] MEDS: INSULIN LISPRO 100 UNITS/ML, PEN SQ-INSULIN SCH ×4 (08:00→20:53)
[2018-05-12] MEDS: INSULIN GLARGINE 100 UNITS/ML, PEN SQ-INSULIN SCH ×2 (08:01→20:52)
[2018-05-12] MEDS: METOPROLOL SUCCINATE 50 MG TAB.ER.24H PO SCH (08:01)
[2018-05-12 08:25] LABS: HEMOGLOBIN A1C 10.3 % (4.2-6.3)
[2018-05-12] MEDS ORDERED: FLUTICASONE/VILANTEROL 200-25MCG/INH INH SCH ×2 (09:00)
[2018-05-12] MEDS ORDERED: ALBUTEROL SULFATE 2.5 MG/3 ML NPPB SCH (10:30)
[2018-05-12] MEDS: BUDESONIDE 0.5 MG/2 ML INHA NPPB SCH ×2 (10:30→18:32)
[2018-05-12 14:22] VITALS: BP 143/72
[2018-05-12] MEDS: ENOXAPARIN 40 MG/0.4 ML SQ SCH (16:11)
[2018-05-12 19:57] VITALS: BP 133/70
[2018-05-12] MEDS: VANCOMYCIN 1,400 MG in SODIUM CHLORIDE 0.9% 250 ML IV SCH (20:33)
[2018-05-12] MEDS ORDERED: ALBUTEROL SULFATE 2.5 MG/3 ML ONE (20:37)
[2018-05-12] MEDS: LOVASTATIN 40 MG TABLET PO SCH (20:50)
[2018-05-12] MEDS: DIGOXIN 0.25 MG TABLET PO SCH (20:50)
[2018-05-12] MEDS: MONTELUKAST 10 MG TABLET PO SCH (20:51)
[2018-05-13] MEDS: PIPERACILLIN/TAZO/PMX 4.5GM 100 ML IV SCH ×5 (01:09→22:52)
[2018-05-13 01:37] VITALS: BP 134/76
[2018-05-13] MEDS: methylPREDNISolone SOD SUCC 125 MG/2 ML IVPush SCH ×4 (04:12→22:52)
[2018-05-13] MEDS: GUAIFENESIN 200 MG TABLET PO SCH ×4 (05:39→20:36)
[2018-05-13 05:51] LABS: MEAN CORPUSCULAR HEMOGLOBIN 31.1 pg (27.0-34.8); MEAN CORPUSCULAR HGB CONC 34.5 g/dL (32.4-35.8); MEAN CORPUSCULAR VOLUME 90.3 fL (80-100); PLATELET COUNT 178 x10^3/uL (130-400); RED BLOOD COUNT 3.43 x10^6/uL (3.82-5.3); RED CELL DISTRIBUTION WIDTH 17.3 % (9.6-15.2)
[2018-05-13] MEDS ORDERED: OMEPRAZOLE 20 MG CAPSULE.DR PO SCH (06:00)
[2018-05-13 06:04] LABS: ALBUMIN 2.8 g/dL (3.4-5.0); ANION GAP 8 mmol/L (5-15); CALCIUM 8.1 mg/dL (8.5-10.1); CHLORIDE 106 mmol/L (98-107)
[2018-05-13 06:06] LABS: CREATININE 0.68 mg/dL (0.55-1.02)
[2018-05-13 06:14] LABS: BASOPHILS % (AUTO) 0 % (0-1); EOSINOPHILS % (AUTO) 0 % (1-7); LYMPHOCYTES # (AUTO) 0.39 x10^3/uL (1-3.4); LYMPHOCYTES % (AUTO) 3 % (22-44); MD SCAN; MONOCYTES % (AUTO) 2 % (2-9); NEUTROPHILS # (AUTO) 11.54 x10^3/uL (1.8-6.8); NEUTROPHILS % (AUTO) 95 % (42-75)
[2018-05-13] MEDS ORDERED: POTASSIUM CHLORIDE 20 MEQ TAB.ER.PRT PO ONE (06:30)
[2018-05-13] MEDS: BUDESONIDE 0.5 MG/2 ML INHA NPPB SCH ×3 (06:34→22:39)
[2018-05-13] MEDS: ALBUTEROL/IPRATROPIUM 2.5MG/0.5MG, 3 ML NPPB SCH ×5 (06:34→22:41)
[2018-05-13 06:56] VITALS: BP 154/79
[2018-05-13] MEDS: INSULIN GLARGINE 100 UNITS/ML, PEN SQ-INSULIN SCH ×2 (09:33→20:38)
[2018-05-13] MEDS: INSULIN LISPRO 100 UNITS/ML, PEN SQ-INSULIN SCH ×4 (09:34→20:38)
[2018-05-13] MEDS: METOPROLOL SUCCINATE 50 MG TAB.ER.24H PO SCH (09:34)
[2018-05-13 13:13] VITALS: BP 149/81
[2018-05-13] MEDS: ACETYLCYSTEINE 20%, 4ML NPPB SCH ×3 (15:00→22:41)
[2018-05-13] MEDS: ENOXAPARIN 40 MG/0.4 ML SQ SCH (16:05)
[2018-05-13] MEDS ORDERED: SODIUM CHLORIDE 0.9% 1,000 ML IV SCH (16:08)
[2018-05-13 18:18] VITALS: BP 168/79
[2018-05-13] MEDS: OMEPRAZOLE 20 MG CAPSULE.DR PO SCH (18:23)
[2018-05-13] MEDS: VANCOMYCIN 1,400 MG in SODIUM CHLORIDE 0.9% 250 ML IV SCH (20:31)
[2018-05-13] MEDS: LOVASTATIN 40 MG TABLET PO SCH (20:35)
[2018-05-13] MEDS: MONTELUKAST 10 MG TABLET PO SCH (20:36)
[2018-05-13] MEDS: DIGOXIN 0.25 MG TABLET PO SCH (20:36)
[2018-05-14 02:21] VITALS: BP 152/88
[2018-05-14] MEDS: PIPERACILLIN/TAZO/PMX 4.5GM 100 ML IV SCH ×3 (04:53→20:27)
[2018-05-14] MEDS: methylPREDNISolone SOD SUCC 125 MG/2 ML IVPush SCH ×3 (04:53→23:22)
[2018-05-14 05:40] LABS: BASOPHILS # (AUTO) 0.02 x10^3/uL (0-0.1); BASOPHILS % (AUTO) 0 % (0-1); EOSINOPHILS % (AUTO) 0 % (1-7); LYMPHOCYTES # (AUTO) 0.55 x10^3/uL (1-3.4); LYMPHOCYTES % (AUTO) 5 % (22-44); MD NO; MEAN CORPUSCULAR HEMOGLOBIN 30.7 pg (27.0-34.8); MEAN CORPUSCULAR HGB CONC 33.7 g/dL (32.4-35.8); MEAN PLATELET VOLUME 6.9 fL (7.4-10.4); MONOCYTES # (AUTO) 0.34 x10^3/uL (0.2-0.8); MONOCYTES % (AUTO) 3 % (2-9); NEUTROPHILS # (AUTO) 10.93 x10^3/uL (1.8-6.8); NEUTROPHILS % (AUTO) 92 % (42-75); PLATELET COUNT 194 x10^3/uL (130-400); RED BLOOD COUNT 3.59 x10^6/uL (3.82-5.3); RED CELL DISTRIBUTION WIDTH 17.2 % (9.6-15.2)
[2018-05-14 05:54] LABS: ANION GAP 9 mmol/L (5-15); CALCIUM 8.3 mg/dL (8.5-10.1); CHLORIDE 104 mmol/L (98-107); CREATININE 0.72 mg/dL (0.55-1.02)
[2018-05-14] MEDS: OMEPRAZOLE 20 MG CAPSULE.DR PO SCH ×2 (06:20→16:44)
[2018-05-14] MEDS: GUAIFENESIN 200 MG TABLET PO SCH ×4 (06:20→20:59)
[2018-05-14] MEDS: ACETYLCYSTEINE 20%, 4ML NPPB SCH ×4 (06:49→18:44)
[2018-05-14] MEDS: BUDESONIDE 0.5 MG/2 ML INHA NPPB SCH ×2 (06:49→21:10)
[2018-05-14] MEDS: ALBUTEROL/IPRATROPIUM 2.5MG/0.5MG, 3 ML NPPB SCH ×4 (06:49→18:44)
[2018-05-14 07:00] VITALS: BP 156/71
[2018-05-14] MEDS: METOPROLOL SUCCINATE 50 MG TAB.ER.24H PO SCH (07:43)
[2018-05-14] MEDS: INSULIN LISPRO 100 UNITS/ML, PEN SQ-INSULIN SCH ×4 (07:44→21:01)
[2018-05-14] MEDS: INSULIN GLARGINE 100 UNITS/ML, PEN SQ-INSULIN SCH ×2 (09:00→21:01)
[2018-05-14] MEDS ORDERED: INSULIN GLARGINE 100 UNITS/ML, PEN SQ-INSULIN SCH (09:00)
[2018-05-14 12:40] VITALS: BP 127/72
[2018-05-14] MEDS: ENOXAPARIN 40 MG/0.4 ML SQ SCH (16:38)
[2018-05-14 18:54] VITALS: BP 146/74
[2018-05-14] MEDS: DIGOXIN 0.25 MG TABLET PO SCH (20:59)
[2018-05-14] MEDS: MONTELUKAST 10 MG TABLET PO SCH (20:59)
[2018-05-14] MEDS: LOVASTATIN 40 MG TABLET PO SCH (20:59)
[2018-05-14] MEDS ORDERED: VANCOMYCIN 1,600 MG in SODIUM CHLORIDE 0.9% 250 ML IV SCH (22:00)
[2018-05-15] MEDS: PIPERACILLIN/TAZO/PMX 4.5GM 100 ML IV SCH ×4 (02:07→20:31)
[2018-05-15] MEDS: ALBUTEROL/IPRATROPIUM 2.5MG/0.5MG, 3 ML NPPB SCH ×5 (03:10→20:00)
[2018-05-15 03:17] VITALS: BP 160/90
[2018-05-15 05:13] LABS: BASOPHILS # (AUTO) 0.01 x10^3/uL (0-0.1); BASOPHILS % (AUTO) 0 % (0-1); EOSINOPHILS % (AUTO) 0 % (1-7); LYMPHOCYTES # (AUTO) 0.42 x10^3/uL (1-3.4); LYMPHOCYTES % (AUTO) 4 % (22-44); MD NO; MEAN CORPUSCULAR HEMOGLOBIN 30.9 pg (27.0-34.8); MEAN CORPUSCULAR VOLUME 90.9 fL (80-100); MEAN PLATELET VOLUME 6.9 fL (7.4-10.4); MONOCYTES # (AUTO) 0.34 x10^3/uL (0.2-0.8); MONOCYTES % (AUTO) 4 % (2-9); NEUTROPHILS # (AUTO) 9.05 x10^3/uL (1.8-6.8); NEUTROPHILS % (AUTO) 92 % (42-75); PLATELET COUNT 181 x10^3/uL (130-400); RED BLOOD COUNT 3.51 x10^6/uL (3.82-5.3); RED CELL DISTRIBUTION WIDTH 17.3 % (9.6-15.2)
[2018-05-15 05:17] LABS: ANION GAP 7 mmol/L (5-15); CHLORIDE 104 mmol/L (98-107); CREATININE 0.73 mg/dL (0.55-1.02)
[2018-05-15] MEDS: methylPREDNISolone SOD SUCC 125 MG/2 ML IVPush SCH ×3 (05:22→17:26)
[2018-05-15] MEDS: GUAIFENESIN 200 MG TABLET PO SCH ×4 (06:17→20:31)
[2018-05-15] MEDS: OMEPRAZOLE 20 MG CAPSULE.DR PO SCH ×2 (06:17→17:26)
[2018-05-15] MEDS: ACETYLCYSTEINE 20%, 4ML NPPB SCH ×3 (07:00→14:45)
[2018-05-15] MEDS: BUDESONIDE 0.5 MG/2 ML INHA NPPB SCH (07:10)
[2018-05-15 07:24] VITALS: BP 152/78
[2018-05-15] MEDS: METOPROLOL SUCCINATE 50 MG TAB.ER.24H PO SCH (08:14)
[2018-05-15] MEDS: INSULIN GLARGINE 100 UNITS/ML, PEN SQ-INSULIN SCH ×2 (08:15→20:43)
[2018-05-15] MEDS: INSULIN LISPRO 100 UNITS/ML, PEN SQ-INSULIN SCH ×4 (08:16→20:44)
[2018-05-15] MEDS ORDERED: FUROSEMIDE 20 MG/2 ML IV ONE (12:00)
[2018-05-15 12:34] VITALS: BP 155/81
[2018-05-15] MEDS: VANCOMYCIN 1,500 MG in SODIUM CHLORIDE 0.9% 250 ML IV SCH (15:43)
[2018-05-15] MEDS: ENOXAPARIN 40 MG/0.4 ML SQ SCH (15:43)
[2018-05-15 19:04] VITALS: BP 152/83
[2018-05-15] MEDS: LOVASTATIN 40 MG TABLET PO SCH (20:31)
[2018-05-15] MEDS: MONTELUKAST 10 MG TABLET PO SCH (20:32)
[2018-05-15] MEDS: DIGOXIN 0.25 MG TABLET PO SCH (20:32)
[2018-05-16] MEDS: methylPREDNISolone SOD SUCC 125 MG/2 ML IVPush SCH ×4 (01:10→18:28)
[2018-05-16 01:11] VITALS: BP 164/72
[2018-05-16] MEDS: PIPERACILLIN/TAZO/PMX 4.5GM 100 ML IV SCH ×4 (03:24→20:50)
[2018-05-16 05:37] LABS: BASOPHILS # (AUTO) 0.02 x10^3/uL (0-0.1); BASOPHILS % (AUTO) 0 % (0-1); EOSINOPHILS % (AUTO) 0 % (1-7); LYMPHOCYTES # (AUTO) 0.42 x10^3/uL (1-3.4); LYMPHOCYTES % (AUTO) 4 % (22-44); MD NO; MEAN CORPUSCULAR HGB CONC 34.3 g/dL (32.4-35.8); MEAN CORPUSCULAR VOLUME 90.3 fL (80-100); MEAN PLATELET VOLUME 6.7 fL (7.4-10.4); MONOCYTES # (AUTO) 0.24 x10^3/uL (0.2-0.8); MONOCYTES % (AUTO) 2 % (2-9); NEUTROPHILS # (AUTO) 9.45 x10^3/uL (1.8-6.8); NEUTROPHILS % (AUTO) 93 % (42-75); PLATELET COUNT 177 x10^3/uL (130-400); RED BLOOD COUNT 3.39 x10^6/uL (3.82-5.3); RED CELL DISTRIBUTION WIDTH 17.3 % (9.6-15.2)
[2018-05-16 05:49] LABS: ALBUMIN 2.8 g/dL (3.4-5.0); ANION GAP 5 mmol/L (5-15); CALCIUM 7.9 mg/dL (8.5-10.1); CHLORIDE 102 mmol/L (98-107)
[2018-05-16 05:53] LABS: ALANINE AMINOTRANSFERASE 71 U/L (12-78); ALKALINE PHOSPHATASE 58 U/L (45-117); BILIRUBIN,TOTAL 0.4 mg/dL (0.2-1.0); CREATININE 0.71 mg/dL (0.55-1.02); TOTAL PROTEIN 5.4 g/dL (6.4-8.2)
[2018-05-16] MEDS: GUAIFENESIN 200 MG TABLET PO SCH ×4 (06:07→20:45)
[2018-05-16] MEDS: OMEPRAZOLE 20 MG CAPSULE.DR PO SCH ×2 (06:07→18:28)
[2018-05-16] MEDS: ALBUTEROL/IPRATROPIUM 2.5MG/0.5MG, 3 ML NPPB SCH ×4 (06:45→20:08)
[2018-05-16] MEDS: BUDESONIDE 0.5 MG/2 ML INHA NPPB SCH ×3 (06:45→20:08)
[2018-05-16 07:35] VITALS: BP 131/82
[2018-05-16] MEDS: INSULIN LISPRO 100 UNITS/ML, PEN SQ-INSULIN SCH ×4 (08:11→20:47)
[2018-05-16] MEDS: INSULIN GLARGINE 100 UNITS/ML, PEN SQ-INSULIN SCH ×2 (08:11→20:47)
[2018-05-16] MEDS: METOPROLOL SUCCINATE 50 MG TAB.ER.24H PO SCH (08:12)
[2018-05-16] MEDS: VANCOMYCIN 1,500 MG in SODIUM CHLORIDE 0.9% 250 ML IV SCH (11:05)
[2018-05-16] MEDS ORDERED: FUROSEMIDE 20 MG/2 ML IV ONE (12:00)
[2018-05-16 12:57] VITALS: BP 168/84
[2018-05-16] MEDS: FUROSEMIDE 20 MG/2 ML IV SCH (15:03)
[2018-05-16] MEDS: ENOXAPARIN 40 MG/0.4 ML SQ SCH (16:30)
[2018-05-16 20:08] VITALS: BP 162/97
[2018-05-16] MEDS: LOVASTATIN 40 MG TABLET PO SCH (20:45)
[2018-05-16] MEDS: MONTELUKAST 10 MG TABLET PO SCH (20:45)
[2018-05-16] MEDS: DIGOXIN 0.25 MG TABLET PO SCH (20:46)
[2018-05-17 01:18] VITALS: BP 142/60
[2018-05-17] MEDS: methylPREDNISolone SOD SUCC 125 MG/2 ML IVPush SCH ×4 (01:41→18:22)
[2018-05-17] MEDS: PIPERACILLIN/TAZO/PMX 4.5GM 100 ML IV SCH ×4 (01:42→20:37)
[2018-05-17] MEDS: VANCOMYCIN 1,500 MG in SODIUM CHLORIDE 0.9% 250 ML IV SCH (03:22)
[2018-05-17] MEDS: FUROSEMIDE 20 MG/2 ML IV SCH ×2 (03:22→17:09)
[2018-05-17] MEDS: GUAIFENESIN 200 MG TABLET PO SCH ×4 (05:12→20:37)
[2018-05-17] MEDS: OMEPRAZOLE 20 MG CAPSULE.DR PO SCH ×2 (05:14→17:09)
[2018-05-17 05:29] LABS: CHLORIDE 99 mmol/L (98-107)
[2018-05-17] MEDS: ALBUTEROL/IPRATROPIUM 2.5MG/0.5MG, 3 ML NPPB SCH ×4 (05:34→19:05)
[2018-05-17 05:40] LABS: ALANINE AMINOTRANSFERASE 105 U/L (12-78); ALBUMIN 3.2 g/dL (3.4-5.0); ALKALINE PHOSPHATASE 64 U/L (45-117); ANION GAP 8 mmol/L (5-15); BILIRUBIN,TOTAL 0.6 mg/dL (0.2-1.0); CALCIUM 8.6 mg/dL (8.5-10.1); CREATININE 0.64 mg/dL (0.55-1.02); TOTAL PROTEIN 6.2 g/dL (6.4-8.2)
[2018-05-17] MEDS: INSULIN LISPRO 100 UNITS/ML, PEN SQ-INSULIN SCH ×4 (07:00→20:37)
[2018-05-17 07:07] LABS: MEAN CORPUSCULAR HGB CONC 34.2 g/dL (32.4-35.8); MEAN CORPUSCULAR VOLUME 90.8 fL (80-100); MEAN PLATELET VOLUME 6.4 fL (7.4-10.4); PLATELET COUNT 188 x10^3/uL (130-400); RED BLOOD COUNT 3.81 x10^6/uL (3.82-5.3); RED CELL DISTRIBUTION WIDTH 17.4 % (9.6-15.2)
[2018-05-17 07:28] VITALS: BP 172/84
[2018-05-17 07:28] LABS: BASOPHILS # (AUTO) 0.06 x10^3/uL (0-0.1); BASOPHILS % (AUTO) 1 % (0-1); EOSINOPHILS % (AUTO) 0 % (1-7); LYMPHOCYTES # (AUTO) 0.45 x10^3/uL (1-3.4); LYMPHOCYTES % (AUTO) 4 % (22-44); MD SCAN; MONOCYTES # (AUTO) 0.15 x10^3/uL (0.2-0.8); MONOCYTES % (AUTO) 1 % (2-9); NEUTROPHILS # (AUTO) 10.86 x10^3/uL (1.8-6.8); NEUTROPHILS % (AUTO) 94 % (42-75)
[2018-05-17] MEDS: METOPROLOL SUCCINATE 50 MG TAB.ER.24H PO SCH (07:58)
[2018-05-17] MEDS: INSULIN GLARGINE 100 UNITS/ML, PEN SQ-INSULIN SCH ×2 (08:12→20:38)
[2018-05-17] MEDS: BUDESONIDE 0.5 MG/2 ML INHA NPPB SCH ×2 (10:30→19:00)
[2018-05-17 12:39] VITALS: BP 156/82
[2018-05-17] MEDS: ENOXAPARIN 40 MG/0.4 ML SQ SCH (17:08)
[2018-05-17 19:47] VITALS: BP 146/79
[2018-05-17] MEDS: DIGOXIN 0.25 MG TABLET PO SCH (20:37)
[2018-05-17] MEDS: LOVASTATIN 40 MG TABLET PO SCH (20:37)
[2018-05-17] MEDS: MONTELUKAST 10 MG TABLET PO SCH (20:37)
[2018-05-18] MEDS: PIPERACILLIN/TAZO/PMX 4.5GM 100 ML IV SCH ×4 (01:26→20:02)
[2018-05-18] MEDS: methylPREDNISolone SOD SUCC 125 MG/2 ML IVPush SCH ×3 (01:26→17:06)
[2018-05-18 01:27] VITALS: BP 165/80
[2018-05-18] MEDS: FUROSEMIDE 20 MG/2 ML IV SCH (04:38)
[2018-05-18] MEDS: GUAIFENESIN 200 MG TABLET PO SCH ×4 (05:23→21:23)
[2018-05-18] MEDS: OMEPRAZOLE 20 MG CAPSULE.DR PO SCH ×2 (05:23→17:24)
[2018-05-18 06:17] LABS: MEAN CORPUSCULAR HEMOGLOBIN 30.9 pg (27.0-34.8); MEAN CORPUSCULAR HGB CONC 33.8 g/dL (32.4-35.8); MEAN CORPUSCULAR VOLUME 91.3 fL (80-100); MEAN PLATELET VOLUME 6.6 fL (7.4-10.4); PLATELET COUNT 199 x10^3/uL (130-400); RED BLOOD COUNT 4.06 x10^6/uL (3.82-5.3); RED CELL DISTRIBUTION WIDTH 17.3 % (9.6-15.2)
[2018-05-18 06:25] LABS: ALBUMIN 3.3 g/dL (3.4-5.0); ANION GAP 10 mmol/L (5-15); CALCIUM 8.4 mg/dL (8.5-10.1); CHLORIDE 94 mmol/L (98-107); CREATININE 0.63 mg/dL (0.55-1.02)
[2018-05-18 06:44] LABS: BASOPHILS # (AUTO) 0.03 x10^3/uL (0-0.1); BASOPHILS % (AUTO) 0 % (0-1); EOSINOPHILS % (AUTO) 0 % (1-7); LYMPHOCYTES # (AUTO) 0.38 x10^3/uL (1-3.4); LYMPHOCYTES % (AUTO) 3 % (22-44); MD SCAN; MONOCYTES # (AUTO) 0.19 x10^3/uL (0.2-0.8); MONOCYTES % (AUTO) 2 % (2-9); NEUTROPHILS # (AUTO) 10.91 x10^3/uL (1.8-6.8); NEUTROPHILS % (AUTO) 95 % (42-75)
[2018-05-18] MEDS: BUDESONIDE 0.5 MG/2 ML INHA NPPB SCH ×2 (07:00→19:05)
[2018-05-18] MEDS: ALBUTEROL/IPRATROPIUM 2.5MG/0.5MG, 3 ML NPPB SCH ×4 (07:00→19:05)
[2018-05-18] MEDS: INSULIN LISPRO 100 UNITS/ML, PEN SQ-INSULIN SCH ×4 (07:00→21:25)
[2018-05-18 07:20] VITALS: BP 159/83
[2018-05-18] MEDS: FUROSEMIDE 20 MG TABLET PO SCH ×2 (09:17→17:05)
[2018-05-18] MEDS: METOPROLOL SUCCINATE 50 MG TAB.ER.24H PO SCH (09:18)
[2018-05-18] MEDS: INSULIN GLARGINE 100 UNITS/ML, PEN SQ-INSULIN SCH ×2 (09:23→21:24)
[2018-05-18 12:50] VITALS: BP 144/83
[2018-05-18] MEDS: ENOXAPARIN 40 MG/0.4 ML SQ SCH (17:05)
[2018-05-18 20:23] VITALS: BP 138/0
[2018-05-18 21:21] VITALS: BP 143/73
[2018-05-18] MEDS: MONTELUKAST 10 MG TABLET PO SCH (21:23)
[2018-05-18] MEDS: DIGOXIN 0.25 MG TABLET PO SCH (21:23)
[2018-05-18] MEDS: LOVASTATIN 40 MG TABLET PO SCH (21:24)
[2018-05-19] MEDS: PIPERACILLIN/TAZO/PMX 4.5GM 100 ML IV SCH (01:37)
[2018-05-19] MEDS: methylPREDNISolone SOD SUCC 125 MG/2 ML IVPush SCH ×2 (01:37→08:30)
[2018-05-19 02:59] VITALS: BP 175/68
[2018-05-19 05:00] VITALS: BP 168/87
[2018-05-19] MEDS: GUAIFENESIN 200 MG TABLET PO SCH ×4 (05:33→20:52)
[2018-05-19] MEDS: OMEPRAZOLE 20 MG CAPSULE.DR PO SCH ×2 (05:33→16:59)
[2018-05-19 06:26] LABS: BASOPHILS % (AUTO) 0 % (0-1); EOSINOPHILS % (AUTO) 0 % (1-7); LYMPHOCYTES # (AUTO) 0.38 x10^3/uL (1-3.4); LYMPHOCYTES % (AUTO) 4 % (22-44); MD NO; MEAN CORPUSCULAR HEMOGLOBIN 31.1 pg (27.0-34.8); MEAN CORPUSCULAR HGB CONC 34.1 g/dL (32.4-35.8); MEAN CORPUSCULAR VOLUME 91.1 fL (80-100); MEAN PLATELET VOLUME 6.5 fL (7.4-10.4); MONOCYTES # (AUTO) 0.29 x10^3/uL (0.2-0.8); MONOCYTES % (AUTO) 3 % (2-9); NEUTROPHILS # (AUTO) 10.14 x10^3/uL (1.8-6.8); NEUTROPHILS % (AUTO) 94 % (42-75); PLATELET COUNT 208 x10^3/uL (130-400); RED BLOOD COUNT 4.11 x10^6/uL (3.82-5.3)
[2018-05-19 06:38] LABS: ALANINE AMINOTRANSFERASE 153 U/L (12-78); ALBUMIN 3.4 g/dL (3.4-5.0); ANION GAP 6 mmol/L (5-15); CALCIUM 8.2 mg/dL (8.5-10.1); CHLORIDE 93 mmol/L (98-107)
[2018-05-19 06:41] LABS: ALKALINE PHOSPHATASE 79 U/L (45-117); BILIRUBIN,TOTAL 0.6 mg/dL (0.2-1.0); CREATININE 0.59 mg/dL (0.55-1.02); TOTAL PROTEIN 6.6 g/dL (6.4-8.2)
[2018-05-19] MEDS: INSULIN LISPRO 100 UNITS/ML, PEN SQ-INSULIN SCH ×4 (07:00→20:54)
[2018-05-19] MEDS: BUDESONIDE 0.5 MG/2 ML INHA NPPB SCH ×2 (07:25→19:00)
[2018-05-19] MEDS: ALBUTEROL/IPRATROPIUM 2.5MG/0.5MG, 3 ML NPPB SCH ×4 (07:25→19:18)
[2018-05-19 08:16] VITALS: BP 158/81
[2018-05-19] MEDS: METOPROLOL SUCCINATE 50 MG TAB.ER.24H PO SCH (08:30)
[2018-05-19] MEDS: FUROSEMIDE 20 MG TABLET PO SCH ×2 (08:30→16:55)
[2018-05-19] MEDS: INSULIN GLARGINE 100 UNITS/ML, PEN SQ-INSULIN SCH ×2 (08:31→20:54)
[2018-05-19] MEDS ORDERED: methylPREDNISolone SOD SUCC 125 MG/2 ML IVPush SCH (15:00)
[2018-05-19] MEDS: ENOXAPARIN 40 MG/0.4 ML SQ SCH (16:30)
[2018-05-19 17:01] VITALS: BP 156/81
[2018-05-19 20:00] VITALS: BP 178/80
[2018-05-19] MEDS: LOVASTATIN 40 MG TABLET PO SCH (20:52)
[2018-05-19] MEDS: MONTELUKAST 10 MG TABLET PO SCH (20:52)
[2018-05-19] MEDS: DIGOXIN 0.25 MG TABLET PO SCH (20:53)
[2018-05-20 00:39] VITALS: BP 153/80
[2018-05-20 05:47] LABS: BASOPHILS # (AUTO) 0.01 x10^3/uL (0-0.1); BASOPHILS % (AUTO) 0 % (0-1); EOSINOPHILS % (AUTO) 0 % (1-7); LYMPHOCYTES # (AUTO) 0.34 x10^3/uL (1-3.4); LYMPHOCYTES % (AUTO) 3 % (22-44); MD NO; MEAN CORPUSCULAR HEMOGLOBIN 30.7 pg (27.0-34.8); MEAN CORPUSCULAR HGB CONC 33.6 g/dL (32.4-35.8); MEAN CORPUSCULAR VOLUME 91.2 fL (80-100); MEAN PLATELET VOLUME 6.6 fL (7.4-10.4); MONOCYTES # (AUTO) 0.34 x10^3/uL (0.2-0.8); MONOCYTES % (AUTO) 3 % (2-9); NEUTROPHILS # (AUTO) 9.37 x10^3/uL (1.8-6.8); NEUTROPHILS % (AUTO) 93 % (42-75); PLATELET COUNT 195 x10^3/uL (130-400); RED BLOOD COUNT 3.97 x10^6/uL (3.82-5.3)
[2018-05-20 05:58] LABS: ALBUMIN 3.1 g/dL (3.4-5.0); ANION GAP 9 mmol/L (5-15); CALCIUM 8.6 mg/dL (8.5-10.1); CHLORIDE 94 mmol/L (98-107)
[2018-05-20 05:59] LABS: CREATININE 0.64 mg/dL (0.55-1.02)
[2018-05-20] MEDS: OMEPRAZOLE 20 MG CAPSULE.DR PO SCH ×2 (06:18→16:08)
[2018-05-20] MEDS: GUAIFENESIN 200 MG TABLET PO SCH ×3 (06:18→16:07)
[2018-05-20] MEDS: ALBUTEROL/IPRATROPIUM 2.5MG/0.5MG, 3 ML NPPB SCH ×3 (07:25→15:50)
[2018-05-20 07:47] VITALS: BP 150/60
[2018-05-20] MEDS: INSULIN LISPRO 100 UNITS/ML, PEN SQ-INSULIN SCH ×3 (08:33→16:07)
[2018-05-20] MEDS: INSULIN GLARGINE 100 UNITS/ML, PEN SQ-INSULIN SCH (08:33)
[2018-05-20] MEDS: FUROSEMIDE 20 MG TABLET PO SCH ×2 (08:34→16:07)
[2018-05-20] MEDS: METOPROLOL SUCCINATE 50 MG TAB.ER.24H PO SCH (08:34)
[2018-05-20 12:36] VITALS: BP 160/79
[2018-05-20] MEDS ORDERED: methylPREDNISolone SOD SUCC 125 MG/2 ML IVPush SCH (15:00)
[2018-05-20] MEDS ORDERED: IPRA3AMP30 NPPB (15:58)
[2018-05-20] MEDS ORDERED: OMEP-110 PO (15:58)
[2018-05-20] MEDS ORDERED: METH125V16 IVPush (15:58)
[2018-05-20] MEDS ORDERED: FURO20TA3 PO (15:58)
[2018-05-20] MEDS ORDERED: INSU100I13 SQ-INSULIN (15:58)
[2018-05-20] MEDS ORDERED: INSU100I11 SQ-INSULIN (15:58)
[2018-05-20] MEDS ORDERED: ALPR0.254 PO (15:58)
[2018-05-20] MEDS ORDERED: CALC1TAB68 PO (15:58)
[2018-05-20] MEDS ORDERED: GUAI400T66 PO (15:58)
[2018-05-20] MEDS: ENOXAPARIN 40 MG/0.4 ML SQ SCH (16:06)
[2018-05-20] MEDS ORDERED: INSULIN GLARGINE 100 UNITS/ML, PEN SQ-INSULIN SCH (21:00)
[2018-05-20] MEDS ORDERED: CALCIUM/VITAMIN D3 250-125 TABLET PO SCH (21:00)
== END 2018-05-20 18:59 | DRG 871 ==
LOC: ED 14:39 → EDIP 16:08 → 4EST 17:01
PROVIDERS: ADMIT Internal Medicine; ATTEND Internal Medicine
DX: A41.9 Sepsis, unspecified organism (principal); J15.9 Unspecified bacterial pneumonia; J96.21 Acute and chronic respiratory failure with hypoxia; E44.0 Moderate protein-calorie malnutrition; J44.0 Chronic obstructive pulmonary disease with (acute) lower respiratory infection; J44.1 Chronic obstructive pulmonary disease with (acute) exacerbation; J45.901 Unspecified asthma with (acute) exacerbation; J98.11 Atelectasis; E11.65 Type 2 diabetes mellitus with hyperglycemia; E66.9 Obesity, unspecified; E78.5 Hyperlipidemia, unspecified; F41.9 Anxiety disorder, unspecified; I10 Essential (primary) hypertension; K21.9 Gastro-esophageal reflux disease without esophagitis; T38.0X5A Adverse effect of glucocorticoids and synthetic analogues, initial encounter; Z90.710 Acquired absence of both cervix and uterus; Z99.81 Dependence on supplemental oxygen; Z88.8 Allergy status to other drugs, medicaments and biological substances; Z79.4 Long term (current) use of insulin; Z79.52 Long term (current) use of systemic steroids; Z79.899 Other long term (current) drug therapy; Z87.01 Personal history of pneumonia (recurrent); Z87.891 Personal history of nicotine dependence; Y92.89 Other specified places as the place of occurrence of the external cause; Z68.32 Body mass index [BMI] 32.0-32.9, adult
CPT/HCPCS: 36415; 36600; 71045; 80048; 80053; 80162; 80202; 82040; 82306; 82803; 82962; 83036; 83605; 83735; 83880; 84100; 84484; 85025; 85610; 85730; 87040; 87070; 87205; 93005; 93306; 94640; 96365; 96375; 99285; G0378; J1650; J1956; J2543; J3370; J7608; J7620; J7626; J1815; J1940; J2930; J7030; J7050; J7512